=== PATIENT | male | born 1970 | race Two or more races ===

== ENCOUNTER 2021-01-17 13:00 | Outpatient (RCR) | payer OTHER, SELFPAY | END 2021-01-19 15:51 | disposition home or self-care (01) | LOC: HO.PT 13:00 | PROVIDERS: PCP Family Medicine; Visit Provider Family Medicine | DX: M54.13 Radiculopathy, cervicothoracic region (principal) | CPT/HCPCS: 97110; 97112; 97140; 97161 ==

== ENCOUNTER 2021-09-19 14:00 | Outpatient (RCR) | payer OTHER, SELFPAY | END 2021-09-19 17:50 | disposition home or self-care (01) | LOC: HO.PT 14:00 | PROVIDERS: PCP Family Medicine; Visit Provider Family Medicine | DX: M53.3 Sacrococcygeal disorders, not elsewhere classified (principal) | CPT/HCPCS: 97110; 97140; 97162 ==

== ENCOUNTER 2021-10-10 13:38 | Outpatient (REF) | payer OTHER, SELFPAY | END 2021-10-10 13:39 | disposition home or self-care (01) | LOC: HO.HMGCLDS 13:38 | PROVIDERS: Visit Provider Internal Medicine | DX: Z20.822 Contact with and (suspected) exposure to COVID-19 (principal) | CPT/HCPCS: C9803; U0003; U0005 ==

== ENCOUNTER → 2021-11-13 11:53 | Outpatient (BNVA) | payer OTHER, SELFPAY | PROVIDERS: PCP Family Medicine; Visit Provider Physician Assistant | DX: Z01.818 Encounter for other preprocedural examination (principal); Z87.19 Personal history of other diseases of the digestive system; Z80.0 Family history of malignant neoplasm of digestive organs | CPT/HCPCS: 99202 ==

== ENCOUNTER 2021-11-15 11:38 | Outpatient (REF) | payer OTHER, SELFPAY ==
--- NOTE | ~2021-11-15 | XR_ITS ---
EXAMINATION: XR SHOULDER, RIGHT CLINICAL INFORMATION: Right shoulder pain. COMPARISON: None TECHNIQUE: AP external rotation, Grashey, scapular Y, and axillary views of the right shoulder. FINDINGS: There is [id number] osteoarthritis in the right acromioclavicular joint. No fracture or malalignment. Glenohumeral joint space is well preserved. Bone mineralization is normal. Soft tissues are unremarkable. XR/XR shoulder RT min 2V IMPRESSION: Mild acromioclavicular osteoarthritis.
== END 2021-11-15 11:39 | disposition home or self-care (01) ==
LOC: HO.XRAY 11:38
PROVIDERS: PCP Family Medicine; Visit Provider Family Medicine
DX: M25.511 Pain in right shoulder (principal)
CPT/HCPCS: 73030

== ENCOUNTER → 2021-12-06 10:52 | Outpatient (BNVA) | payer OTHER, SELFPAY | PROVIDERS: PCP Family Medicine; Visit Provider Physician Assistant | DX: M77.8 Other enthesopathies, not elsewhere classified (principal) | CPT/HCPCS: 20610; 99202; J1040 ==

== ENCOUNTER → 2021-12-07 13:54 | Outpatient (BNVA) | payer OTHER, SELFPAY | PROVIDERS: PCP Family Medicine; Visit Provider Nurse Practitioner Family | DX: M47.27 Other spondylosis with radiculopathy, lumbosacral region (principal); M53.3 Sacrococcygeal disorders, not elsewhere classified; M47.22 Other spondylosis with radiculopathy, cervical region; M19.011 Primary osteoarthritis, right shoulder; F11.90 Opioid use, unspecified, uncomplicated; N52.9 Male erectile dysfunction, unspecified | CPT/HCPCS: 99202 ==

== ENCOUNTER 2021-12-12 09:42 | Day surgery (SDC) | payer OTHER, SELFPAY ==
--- NOTE | 2021-12-11 11:57 | P.CONAN_ITS ---
Documented by User: Hannah Washington NP 12/11/21 11:58 HPI - Anesthesia Eval Consult details Narrative: 51yo M for Colonoscopy Chronic opioids PMFSH Active Problems Active Problems: All Active Problems (Updated 12/07/21 @ 23:43 by VEDA Fabian) Osteoarthritis of right acromioclavicular joint (Acute) Cervical spondylosis with radiculopathy (Acute) Sacroiliac joint dysfunction of both sides (Acute) Lumbosacral spondylosis with radiculopathy (Acute) Chronic, continuous use of opioids (Acute) Erectile dysfunction (Acute) History of chronic constipation (Acute) Encounter for screening colonoscopy (Acute) Family History Family History Mother Diabetes Maternal Grandmother Diabetes Maternal Aunt Diabetes Cancer Maternal Aunt Diabetes Surgical History Surgical History Hx of appendectomy Hx of circumcision Social History Social History Household Members Other:: Alcohol intake: never Patient Tobacco Use Status: Former Tobacco user Use of substances other than those prescribed or required for medical reasons: No Advance Directives: No Advance Directives Information Provided: Yes Current occupational status: disabled Meds Allergies Allergy/AdvReac Type Severity Reaction Status Date / Time benzocaine Allergy Unknown UNKNOWN Verified 12/07/21 13:57 [From Chloraseptic] menthol [From Chloraseptic] Allergy Unknown UNKNOWN Verified 12/07/21 13:57 From Chloraseptic Allergy Unknown UNKNOWN Uncoded 12/06/21 11:10 Seafood Allergy Unknown ITCHY Uncoded 12/06/21 11:10 THROAT seafood Allergy Unknown Unknown Uncoded 12/06/21 11:10 Home Medications Medication Instructions Recorded Confirmed Last Taken Type aripiprazole 2 mg tablet (Abilify) 2 mg PO DAILY 11/13/21 11/13/21 Unknown History baclofen 20 mg tablet 20 mg PO BID 11/13/21 11/13/21 Unknown History oxycodone 7.5 mg tablet,oral ONLY 7.5 mg PO BID PRN 11/13/21 11/13/21 Unknown History (not for feeding tubes) Exam Exam Date and Time: December 11, 2021 1157 Assessment and Plan Assessment Anesthesia Assessment: Chart Reviewed Documented by User: Sindhu Knox MD 12/12/21 12:19 [facility] Past Medical History Functional capacity: independent ambulation Family History Family History Mother Diabetes Maternal Grandmother Diabetes Maternal Aunt Diabetes Cancer Maternal Aunt Diabetes Family history of problems with anesthesia: No Surgical History Surgical History Hx of appendectomy Hx of circumcision Social History Social History Household Members Other:: Alcohol intake: never Patient Tobacco Use Status: Former Tobacco user Use of substances other than those prescribed or required for medical reasons: No Advance Directives: No Advance Directives Information Provided: Yes Current occupational status: disabled Meds Allergies Allergy/AdvReac Type Severity Reaction Status Date / Time benzocaine Allergy Unknown UNKNOWN Verified 12/07/21 13:57 [From Chloraseptic] menthol [From Chloraseptic] Allergy Unknown UNKNOWN Verified 12/07/21 13:57 From Chloraseptic Allergy Unknown UNKNOWN Uncoded 12/06/21 11:10 Seafood Allergy Unknown ITCHY Uncoded 12/06/21 11:10 THROAT seafood Allergy Unknown Unknown Uncoded 12/06/21 11:10 Home Medications Medication Instructions Recorded Confirmed Last Taken Type aripiprazole 2 mg tablet (Abilify) 2 mg PO DAILY 11/13/21 11/13/21 Unknown History baclofen 20 mg tablet 20 mg PO BID 11/13/21 11/13/21 Unknown History oxycodone 7.5 mg tablet,oral ONLY 7.5 mg PO BID PRN 11/13/21 11/13/21 Unknown History (not for feeding tubes) Exam Airway Mallampati Class: II TM Dist: >3cm Neck ROM: Full Heart: RRR Lungs: CTA Assessment and Plan Final Anesthetic Review Family History of Problems with Anesthesia: No ASA Class: II Final Preanesthetic Review: No Changes in Pt Med Stat, Meds/Allgs Chart Reviewed, Consent Obtained/Reviewed and Anes Risks/Benef Reviewed Patient Risk: Low Procedure Risk: Low Anesthetic Plan Anesthetic Plan: MAC: Disposition: Standard PACU
[2021-12-12 10:34] VITALS: BP 117/80; PULSE 87; RESP 16; TEMP 36.5; O2SAT 96; BMI 27.3
[2021-12-12] MEDS: Lactated Ringers 1,000 ML 100 ML IVCONT (10:56)
--- NOTE | 2021-12-12 12:05 | MHC.SHP ---
Pre-Procedural Eval Section A Date of Service: 12/12/21 The patient is an INPATIENT: No Changes since office visit: Yes Patient answered all questions; No Cold of Flu in the past 2 weeks, No New Medical Problems and No Changes in Medication The History & Physical has been completed within 30 days and I have reviewed it.: Yes Section B Chief Complaint: screening,hx of digestive system Allergies: Allergies Allergy/AdvReac Type Severity Reaction Status Date / Time benzocaine Allergy Unknown UNKNOWN Verified 12/07/21 13:57 [From Chloraseptic] menthol [From Chloraseptic] Allergy Unknown UNKNOWN Verified 12/07/21 13:57 From Chloraseptic Allergy Unknown UNKNOWN Uncoded 12/06/21 11:10 Seafood Allergy Unknown ITCHY Uncoded 12/06/21 11:10 THROAT seafood Allergy Unknown Unknown Uncoded 12/06/21 11:10 Plan I have reviewed the history and physical and performed a pertinent physical examination on my patient. No changes have occurred unless specified.
--- NOTE | 2021-12-12 12:06 | W.PM.OPN ---
Operative Note Operative Note Date of Service: 12/12/21 Narrative: Pre-op diagnosis: Colon cancer screening Post-op diagnosis:?other (Colon polyps, diverticulosis, hemorrhoid) Procedure: COLONOSCOPY TILL CECUM WITH BIOPSIES Consent: Indications for the procedure and potential complications of bleeding, perforation, reaction to medications and missed diagnosis were discussed with the patient and informed consent was obtained. Instrument: Olympus PCF H 190 L variable stiffness pediatric colonoscope Monitoring: Vital signs and clinical assessment, intermittent blood pressure monitoring, continuous EKG monitoring, Pulse oximetry and Carbon Dioxide monitoring were done throughout the procedure. Colon withdrawl time was 24 minutes. Procedure: The patient was placed in the left lateral decubitis position and pre-procedure medications were administered. After a digital rectal examination of the ano-rectum, the video colonoscope was inserted into the rectum and advanced through the colon to the cecum. The colonoscope was slowly withdrawn in a retrograde panoramic fashion and the colon mucosa was carefully examined including a retroflexed view of the rectum. Findings and interventions are described below. Procedure Difficulty: Without difficulty Findings: Terminal Ileum: Not evaluated Cecum:? Normal Ascending Colon:? Normal Transverse Colon:? a 2-3 mm sessile polyp removed with the cold biopsy Descending Colon:? Normal Sigmoid Colon:? A 2-3 mm diminutive appearing polyp removed with the cold biopsy.? Moderate diverticulosis Rectum:? Normal Ano-rectum:? Moderate internal hemorrhoids Colon preparation:? Good? Impression and Post Procedure Diagnosis: Colonoscopy Findings: Two tiny polyps removed Moderate diverticulosis seen in the sigmoid colon Moderate hemorrhoids on retroflexed exam. Plan: Await pathology results Patient has an appointment on 01/11/22 in the GI Clinic with TONY Read. Repeat Colonoscopy interval based on path results - in 5 years if polyps are adenomatous and 10 years if polyps are hyperplastic. Above findings were reviewed with the patient and colon polyps and diverticulosis handouts were given in the discharge area Surgeon: Venecia Beckford MD Anesthesia:?MAC (Dr El) Was an Bacteriologist Fishery used for this Procedure?:?Yes Bacteriologist Fishery:?Leora Hurley Estimated blood loss (mL):?0 Pathology:?other ( A: transverse colon polyp? B: sigmoid polyp) Condition:?stable Disposition:?PACU
[2021-12-12 13:00] VITALS: BP 87/50; PULSE 79; RESP 16; TEMP 36.4; O2SAT 95
[2021-12-12 13:15] VITALS: BP 110/70; PULSE 71; RESP 16; TEMP 36.4; O2SAT 98
--- NOTE | 2021-12-12 13:15 | HO.POSTANES ---
Post Anesthesia Evaluation Post Anesthesia Evaluation Vital Signs: Vital Signs Temp Pulse Resp BP Pulse Ox 12/12/21 13:00 97.6 F 79 16 87/50 L 95 12/12/21 10:34 97.7 F 87 16 117/80 96 Anesthesia: Monitored Mental Status: Awake Pain Control: Satisfactory Nausea/Vomiting: None Hydration: Adequate Anesthesia-Related Issues: No Anes. Related Issues
== END 2021-12-12 14:14 | disposition home or self-care (01) ==
PROVIDERS: PCP Family Medicine; Visit Provider Internal Medicine Gastroenterology
PROC: 0DJD8ZZ Inspection of Lower Intestinal Tract, Via Natural or Artificial Opening Endoscopic (ICD-10-PCS; CPT 45378; principal; 2021-12-12 11:40)
DX: Z12.11 Encounter for screening for malignant neoplasm of colon (principal); K63.5 Polyp of colon; K57.30 Diverticulosis of large intestine without perforation or abscess without bleeding; K64.8 Other hemorrhoids; Z87.19 Personal history of other diseases of the digestive system; M54.30 Sciatica, unspecified side; K59.09 Other constipation; Z79.899 Other long term (current) drug therapy; Z88.8 Allergy status to other drugs, medicaments and biological substances; Z87.891 Personal history of nicotine dependence
CPT/HCPCS: 45380; 88305

== ENCOUNTER 2022-01-08 13:12 | Outpatient (REF) | payer OTHER, SELFPAY | END 2022-01-08 13:13 | disposition home or self-care (01) | LOC: HO.MRI 13:12 | PROVIDERS: Visit Provider Nurse Practitioner Family | DX: Z13.89 Encounter for screening for other disorder (principal) ==

== ENCOUNTER → 2022-01-11 12:28 | Outpatient (BNVA) | payer OTHER, SELFPAY | PROVIDERS: PCP Family Medicine; Referring Provider Family Medicine; Visit Provider Physician Assistant | DX: K57.90 Diverticulosis of intestine, part unspecified, without perforation or abscess without bleeding (principal); K63.5 Polyp of colon; K64.9 Unspecified hemorrhoids; Z87.19 Personal history of other diseases of the digestive system | CPT/HCPCS: 99212 ==

== ENCOUNTER 2022-01-26 15:50 | Outpatient (REF) | payer OTHER, SELFPAY ==
--- NOTE | ~2022-01-26 | MR_ITS ---
EXAMINATION: MR LUMBAR SPINE WITHOUT CONTRAST CLINICAL INFORMATION: 51-year-old with complaints of right-sided low back pain and right-sided lumbar radicular symptoms. COMPARISON: None TECHNIQUE: MRI of the lumbar spine was obtained using routine sequences without contrast. FINDINGS: Coronal Alignment: Normal. Sagittal Alignment: Normal. Lumbosacral Junction: Normal. 5 [id number] lumbar vertebra. There are some perineural/Tarlov cysts seen on both sides of the S2 sacral canal. Vertebral Bodies: Normal height. Disc Spaces and Endplates: The lumbar intervertebral disc space heights and signal are well-maintained throughout the lumbar spine. Endplates appear intact. No significant spondylosis. Spinal Canal: No abnormal developmental findings. Bone Marrow: No significant marrow-replacing process or bone marrow edema. Conus Medullaris: Terminates at T12-L1. Morphology and signal is normal. Intradural Nerve Roots: Within normal limits. The lumbar intervertebral discs demonstrate normal contours. No significant disc bulge or herniation seen. There are mild degrees of facet arthrosis noted bilaterally at the levels between L3-L4 and L5-S1 inclusive. No significant spinal canal or neuroforaminal stenosis and no evidence for neural impingement. Paraspinal/Retroperitoneal: The paravertebral soft tissues appear grossly unremarkable. There are bony productive changes along the anterior margins of both sacroiliac joints with foci of signal loss consistent with degenerative sclerosis consistent with osteoarthritic change, similar in appearance to a previous CT of the abdomen performed on 07/25/2014. MR/MR lumbar spine wo con IMPRESSION: 1. Normal spinal alignment. No significant disc degenerative change and no significant disc bulge or herniation. 2. Mild degrees of facet arthrosis bilaterally in the lower lumbar spine with no significant spinal canal or neuroforaminal stenosis. No evidence for neural impingement. 3. Osteoarthritic degenerative changes along the anterior margins of both SI joints.
== END 2022-01-26 15:51 | disposition home or self-care (01) ==
LOC: HO.MRI 15:50
PROVIDERS: Visit Provider Nurse Practitioner Family
DX: M47.27 Other spondylosis with radiculopathy, lumbosacral region (principal)
CPT/HCPCS: 72148

== ENCOUNTER 2023-06-21 10:05 | Outpatient (REF) | payer OTHER, SELFPAY ==
[2023-06-23 03:23] LABS: Follicle Stimulating Hormone 7.6 mIU/mL (1.6-8.0); Lutenizing Hormone 4.2 mIU/mL (1.5-9.3)
[2023-06-27 12:42] LABS: Testosterone, Free 86.5 pg/mL (35.0-155.0); Testosterone, Total 503 ng/dL (250-1100)
== END 2023-06-21 10:06 | disposition home or self-care (01) ==
LOC: HO.HHCL 10:05
PROVIDERS: Visit Provider Family Medicine
DX: E29.1 Testicular hypofunction (principal)
CPT/HCPCS: 36415; 83001; 83002; 84402; 84403

== ENCOUNTER 2023-06-28 10:11 | Outpatient (REF) | payer OTHER, SELFPAY ==
[2023-07-04 15:03] LABS: Testosterone, Free 75.1 pg/mL (35.0-155.0); Testosterone, Total 504 ng/dL (250-1100)
== END 2023-06-28 10:12 | disposition home or self-care (01) ==
LOC: HO.CHCLDS 10:11
PROVIDERS: Visit Provider Family Medicine
DX: E29.1 Testicular hypofunction (principal)
CPT/HCPCS: 36415; 84402; 84403

== ENCOUNTER 2023-10-11 15:59 | Outpatient (REF) | payer OTHER, SELFPAY ==
[2023-10-12 02:32] LABS: CT PCR NOT DETECTED (Not Detect.); NG PCR NOT DETECTED (Not Detect.)
== END 2023-10-11 16:00 | disposition home or self-care (01) ==
LOC: HO.CHCLNP 15:59
PROVIDERS: Visit Provider Family Medicine
DX: Z20.2 Contact with and (suspected) exposure to infections with a predominantly sexual mode of transmission (principal)
CPT/HCPCS: 0353U

== ENCOUNTER 2023-10-15 09:36 | Outpatient (REF) | payer OTHER, SELFPAY ==
[2023-10-15 14:56] LABS: MANUAL DIFF FLAG NO
[2023-10-15 15:03] LABS: Basophils Percent Auto 0.5 % (0-2); Eosinophils Absolute Auto 0.1 X10*3/uL (0.0-0.4); Eosinophils Percent Auto 2.2 % (0-4); Hematocrit 43.9 % (42.0-52.0); Imm Gran Abs Auto 0.02 X10*3/uL (0.00-0.03); Imm Gran Pct Auto 0.3 % (0.0-0.4); Lymphocytes Absolute Auto 1.5 X10*3/uL (1.2-4.9); Lymphocytes Percent Auto 23.2 % (20-40); Mean Corpuscular HGB Conc 34.2 g/dl (31.0-36.0); Mean Corpuscular Hemoglobin 31.2 pg (27.0-33.0); Mean Corpuscular Volume 91.3 fL (80.0-98.0); Monocytes Absolute Auto 0.6 X10*3/uL (0.1-1.2); Monocytes Percent Auto 9.6 % (2-11); Neutrophils Absolute Auto 4.1 x10*3/uL (2.0-8.3); Neutrophils Percent Auto 64.2 % (45-73); Platelet Count 260 X10*3/uL (160-400); Red Blood Count 4.81 X10*6/uL (4.60-5.80); Red Cell Distribution Width 12.7 % (11.0-16.0); White Blood Count 6.4 X10*3/uL (4.8-10.8)
[2023-10-15 15:29] LABS: Estimated Average Glucose 111 mg/dL; Hemoglobin A1c % 5.5 % (<6.0)
[2023-10-15 15:31] LABS: Alanine Aminotransferase 29 U/L (0-40); Albumin Level 4.1 g/dL (3.5-5.0); Alkaline Phosphatase 58 U/L (39-117); Anion Gap 14 (12-20); Aspartate Amino Transferase 15 U/L (5-37); Bilirubin Total 0.4 mg/dL (0.0-1.0); Blood Urea Nitrogen 18 mg/dL (9-16); Calcium 9.4 mg/dL (8.4-10.2); Carbon Dioxide 26 mmol/L (22-29); Chloride 106 mmol/L (96-108); Cholesterol 191 mg/dL (<200); Estimated Glomerular Filt Rate > 60; Glucose Random 95 mg/dL (60-115); HDL Cholesterol 59 mg/dL (>40); LDL Cholesterol Calculated 114 mg/dL (<100); Potassium 3.9 mmol/L (3.3-5.1); Sodium 142 mmol/L (135-145); Total Protein 6.8 g/dL (6.5-8.0); Triglycerides 90 mg/dL (<150)
[2023-10-15 15:45] LABS: TSH reflex Free T4 1.79 uIU/mL (0.32-4.0); TSH reflex Free T4 1.94 uIU/mL (0.32-4.0)
[2023-10-16 04:36] LABS: Syphilis Screen Nonreactive (Nonreactive)
[2023-10-16 04:57] LABS: HBsAGNum1 0.22 S/CO (0.00-0.99); HIV AB/AG Nonreactive (Nonreactive); HIV Num 1 0.07 S/CO (0.00-0.99); Hepatitis B Surface Antigen Negative (Negative); ~HepC Num1 0.12 S/CO (0.00-0.79); ~Hepatitis C Antibody Nonreactive (Nonreactive)
[2023-10-16 15:23] LABS: Herpes Simplex Type 2 IgG <0.90 index
[2023-10-19 05:18] LABS: Immunoglobulin M 38 mg/dL (50-300)
== END 2023-10-15 09:37 | disposition home or self-care (01) ==
LOC: HO.CHCLDS 09:36
PROVIDERS: Visit Provider Family Medicine
DX: R73.01 Impaired fasting glucose (principal); Z11.3 Encounter for screening for infections with a predominantly sexual mode of transmission; E66.09 Other obesity due to excess calories; Z68.31 Body mass index [BMI] 31.0-31.9, adult; Z20.2 Contact with and (suspected) exposure to infections with a predominantly sexual mode of transmission
CPT/HCPCS: 36415; 80053; 80061; 82784; 83036; 84443; 85025; 86695; 86696; 86780; 86803; 87340; 87389

== ENCOUNTER 2023-12-30 09:58 | Outpatient (AMB) | payer OTHER, SELFPAY ==
--- NOTE | 2023-12-30 10:00 | A.OFFVIS_ITS ---
Intake Intake Visit Reasons: hypogonadism in male Intake Note: NEW Patient presents today to established treatment for hypogonadism Meds- None Allergies to antibiotics: none Blood thinner: none Delivery Mgr Required: No Accompanied by: Self / Same As Patient Allergies benzocaine [From Chloraseptic] Allergy (Unknown, Verified 12/30/23 10:11) UNKNOWN menthol [From Chloraseptic] Allergy (Unknown, Verified 12/30/23 10:11) UNKNOWN From Chloraseptic Allergy (Unknown, Uncoded 12/30/23 10:11) UNKNOWN Seafood Allergy (Unknown, Uncoded 12/30/23 10:11) ITCHY THROAT seafood Allergy (Unknown, Uncoded 12/30/23 10:11) Unknown HPI HPI Comments History of Present Illness Details Kameron is a 53-year-old male who presents for new patient evaluation for hypogonadism. I have reviewed referral notes. The patient is on chronic opioid use for back pain. International index erectile function questionnaire completed score 17 - indicating mild ED. He had labs done in June 2023. 06/21/2023 FSH -7.6-(N), LH-4.2-(N), 06/28/2023-- total testosterone 504 WNL, free testosterone 75.1 WNL Plan I have discussed repeating lab work. PFS Medical History Back pain Hypogonadism in male Surgical History Hx of colonoscopy Hx of circumcision Hx of appendectomy Family History Mother Diabetes Maternal Grandmother Diabetes Maternal Aunt Diabetes Cancer Maternal Aunt Diabetes Social History Household Members Other:: Alcohol intake: never Patient Tobacco Use Status: Former Tobacco user Current occupational status: disabled Review of Systems Const All systems reviewed & are unremarkable except as noted in HPI and below Reports no additional complaints Eyes Reports no additional complaints ENT Reports no additional complaints Card Reports no additional complaints Resp Reports no additional complaints GI Reports no additional complaints Reports as per HPI Musc Reports no additional complaints Skin/Breast Reports system reviewed and no additional complaints, except as documented Neuro Reports no additional complaints Psych Reports no additional complaints Endo Reports no additional complaints Pj/Lymph Reports no additional complaints Aller/Immun Reports no additional complaints Physical Exam Const General: healthy appearing, no acute distress and well developed Orientation/consciousness: patient oriented x3 HEENT Head: Yes normocephalic and Yes atraumatic Eyes Conjunctivae: conjunctivae normal Neck Neck: Yes normal visual inspection Chest Chest palpation & inspection: normal inspection of the chest Resp Effort & Inspection: normal respiratory effort Cardio Rate: regular rate GI Inspection: Yes normal to inspection Skin General skin exam: no rashes or lesions noted Neuro General: patient oriented x3 Extrem General: No pedal edema Psych Appearance: grossly normal Affect: normal affect Results AMB Urinalysis, Automated UA Leukoctes 0 Lalitha/uL Last Edit by Amanda Enriquez [facility] on 12/30/23 10 :21 UA Nitrite Negative Last Edit by Amanda Enriquez [facility] on 12/30/23 10: 21 UA Urobilinogen 0.2 mg/dL Last Edit by Amanda Enriquez [facility] on 4 10:21 UA Protein 15 mg/dL Last Edit by Amanda Enriquez [facility] on 12/30/23 10:2 1 UA pH 6.0 Last Edit by Amanda Enriquez [facility] on 12/30/23 10:21 UA Blood 10 Gavin/uL Last Edit by Amanda Enriquez [facility] on 12/30/23 10:21 UA Specific [place] 1.025 Last Edit by Amanda Enriquez [facility] on 10:21 UA Ketone Negative Last Edit by Amanda Enriquez [facility] on 12/30/23 10:2 1 UA Bilirubin 0 mg/dL Last Edit by Amanda Enriquez [facility] on 12/30/23 10: 21 UA Glucose 0 mg/dL Last Edit by Amanda Enriquez [facility] on 12/30/23 10:21 Results Reviewed Results Reviewed: Laboratory Last Values Urine pH (Auto) 6.0 12/30/23 10:14 Specific [place] (Auto) 1.025 12/30/23 10:14 Urine Protein (Auto) 15 mg/dL 12/30/23 10:14 Glucose (UA)(Auto) 0 mg/dL 12/30/23 10:14 Urine Ketones (Auto) Negative 12/30/23 10:14 Urine Blood (Auto) 10 Gavin/uL 12/30/23 10:14 Urine Nitrite (Auto) Negative 12/30/23 10:14 Urine Bilirubin (Auto) 0 mg/dL 12/30/23 10:14 Urine Urobilinogen (Auto) 0.2 mg/dL 12/30/23 10:14 Leukocyte Esterase (Auto) 0 Lalitha/uL 12/30/23 10:14 Assessment & Plan Assessment & Plan (1) Erectile dysfunction: Code(s): N52.9 - Male erectile dysfunction, unspecified (2) Chronic, continuous use of opioids: Code(s): F11.90 - Opioid use, unspecified, uncomplicated (3) Screening PSA (prostate specific antigen): Code(s): Z12.5 - Encounter for screening for malignant neoplasm of prostate Plan Testosterone, PSA Orders: Orders AMB Urinalysis Automated 12/30/23 R33.9 - Retention of urine, unspecified Patient Instructions: The patient had an opportunity to ask questions regarding treatment plan. All questions were answered. Laboratory studies were discussed and reviewed in detail. No major barriers to understanding were identified. The patient expressed understanding and agreement with the above treatment plan. The patient is aware they should contact our office by phone for worsening of their current condition or the appearance of new symptoms. Compliance is encouraged with any medications and followup testing that is ordered. It is a privilege to be allowed the opportunity to participate in the urologic care of your patient. If you have any questions or concerns regarding treatment for the above conditions please do not hesitate to contact me. The office telephone contact is [phone]. This note is constructed in part using voice recognition software. While every effort has been made to ensure accuracy swahili teacher errors may have been included. Yours sincerely, Kim Jacobo MD Coding Level of Care Code New Pt Level 3 (85963) Diagnoses Erectile dysfunction N52.9 Chronic, continuous use of opioids F11.90 Screening PSA (prostate specific antigen) Z12.5
== END 2023-12-30 11:20 | disposition home or self-care (01) ==
PROVIDERS: PCP Family Medicine; Visit Provider Urology
DX: N52.9 Male erectile dysfunction, unspecified (principal); F11.90 Opioid use, unspecified, uncomplicated; Z12.5 Encounter for screening for malignant neoplasm of prostate
CPT/HCPCS: 99203

== ENCOUNTER → 2023-12-30 09:58 | Outpatient (BNVA) | payer OTHER, SELFPAY | PROVIDERS: PCP Family Medicine; Visit Provider Urology | DX: R33.9 Retention of urine, unspecified (principal) | CPT/HCPCS: 81003; 99202 ==

== ENCOUNTER 2024-02-24 10:40 | Outpatient (REF) | payer OTHER, SELFPAY ==
[2024-02-24 11:31] LABS: Glucose Fasting 101 mg/dL (60-99)
[2024-02-25 12:34] LABS: Free Prostate Spec Ag 0.7 ng/mL; Percent Free Prostate Spec Ag 13 % (calc) (>25); Prostate Specific Ag Total 5.2 ng/mL (< OR = 4.0)
[2024-02-28 21:53] LABS: Testosterone, Free 44.5 pg/mL (35.0-155.0); Testosterone, Total 309 ng/dL (250-1100)
== END 2024-02-24 10:41 | disposition home or self-care (01) ==
LOC: HO.LAB 10:40
PROVIDERS: Visit Provider Urology
DX: N52.9 Male erectile dysfunction, unspecified (principal); Z12.5 Encounter for screening for malignant neoplasm of prostate
CPT/HCPCS: 36415; 82947; 84153; 84154; 84402; 84403

== ENCOUNTER → 2024-03-04 13:03 | Outpatient (BNVA) | payer OTHER, SELFPAY | PROVIDERS: PCP Family Medicine; Visit Provider Urology ==

== ENCOUNTER 2024-03-05 14:31 | Outpatient (AMB) | payer OTHER, SELFPAY ==
--- NOTE | 2024-03-04 13:04 | A.OFFVIS_ITS ---
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: Yes Allergies benzocaine [From Chloraseptic] Allergy (Unknown, Verified 03/04/24 13:04) UNKNOWN menthol [From Chloraseptic] Allergy (Unknown, Verified 03/04/24 13:04) UNKNOWN From Chloraseptic Allergy (Unknown, Uncoded 12/30/23 10:11) UNKNOWN Seafood Allergy (Unknown, Uncoded 12/30/23 10:11) ITCHY THROAT seafood Allergy (Unknown, Uncoded 12/30/23 10:11) Unknown PFSH Medical History Back pain Hypogonadism in male Surgical History Hx of colonoscopy Hx of circumcision Hx of appendectomy Family History Mother Diabetes Maternal Grandmother Diabetes Maternal Aunt Diabetes Cancer Maternal Aunt Diabetes Social History Household Members Other:: Alcohol intake: never Patient Tobacco Use Status: Former Tobacco user Current occupational status: disabled Telehealth Telehealth Telehealth Platform: Telephone Location of provider rendering services: practice address Location of patient: address on file Patient Identification confirmed using: Name, : Yes Telehealth method: voice only Patient verbally consented to treatment: Yes Patient verbally consented to billing insurance company: Yes Patient informed of any privacy concerns related to visit: Yes Coding
--- NOTE | 2024-03-05 14:36 | MHC.OFFVIS ---
Intake Visit Reasons: 1m/labs Intake Note: Patient presents today via phone for a follow-up on Hypogonadism/Labs Results: Meds- None Allergies to antibiotics: none Blood thinner: none Senior Production Supervisor Required: Yes Senior Production Supervisor Language: Software Engineering Project Manager Name: Nayan GainesCADE/MIRANDA GAGE Information Interpreted: non-clinical & clinical Accompanied by: Self / Same As Patient Allergies benzocaine [From Chloraseptic] Allergy (Unknown, Verified 03/04/24 13:04) UNKNOWN menthol [From Chloraseptic] Allergy (Unknown, Verified 03/04/24 13:04) UNKNOWN From Chloraseptic Allergy (Unknown, Uncoded 12/30/23 10:11) UNKNOWN Seafood Allergy (Unknown, Uncoded 12/30/23 10:11) ITCHY THROAT seafood Allergy (Unknown, Uncoded 12/30/23 10:11) Unknown Medication List - Last Reconciled 03/05/24 by Kim Jacobo MD aripiprazole (Abilify) 2 mg PO DAILY baclofen 10 mg PO BID oxycodone-acetaminophen 7.5-325 mg 1 tab PO Q8H PRN tadalafil (Cialis) 5 mg PO DAILY HPI Comments Details: 03/05/2024-Kameron is a 53-year-old male, Bolivian-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 Presents for [facility] follow-up to review labs. The patient was initially evaluated 12/30/2023 with complaints of ED. labs were ordered testosterone and PSA. Testosterone level is low normal PSA is elevated. I have discussed repeating the PSA and at this time do not want to place on testosterone replacement due to elevated PSA. Denies family history prostate cancer. He is on oxycodone for sciatica back pain. I have discussed PSA is a blood test, prostate specific antigen and is an enzyme secreted by the prostate gland. Elevated PSA may be due to multiple conditions including prostate inflammatory condition, enlarged prostate or prostate cancer. Discussed consideration for prostate biopsy if repeat PSA remains elevated. I will start on Cialis 5 mg daily. Repeat PSA in 3 months. 02/24/2024---PSA----5.2 ng/mL 02/24/2024---Total and free Testosterone levels -309/44.5 Review of chart: 12/30/2023-Kameron is a 53-year-old male who presents for new patient evaluation for hypogonadism. I have reviewed referral notes. The patient is on chronic opioid use for back pain. International index erectile function questionnaire completed score 17 - indicating mild ED. He had labs done in June 2023. 06/21/2023 FSH -7.6-(N), LH-4.2-(N), 06/28/2023-- total testosterone 504 WNL, free testosterone 75.1 WNL. Plan I have discussed repeating lab work. [facility] Medical History Back pain Hypogonadism in male Surgical History Hx of colonoscopy Hx of circumcision Hx of appendectomy Family History Mother Diabetes Maternal Grandmother Diabetes Maternal Aunt Diabetes Cancer Maternal Aunt Diabetes Social History Household Members Other:: Alcohol intake: never Patient Tobacco Use Status: Former Tobacco user Current occupational status: disabled Review of Systems Const All systems reviewed & are unremarkable except as noted in HPI and below Reports no additional complaints Eyes Reports no additional complaints ENT Reports no additional complaints Card Reports no additional complaints Resp Reports no additional complaints GI Reports no additional complaints Reports as per HPI Musc Reports no additional complaints Skin/Breast Reports system reviewed and no additional complaints, except as documented Neuro Reports no additional complaints Psych Reports no additional complaints Endo Reports no additional complaints Pj/Lymph Reports no additional complaints Aller/Immun Reports no additional complaints Telehealth Telehealth Telehealth Platform: [facility] Location of provider rendering services: practice address Location of patient: address on file Patient Identification confirmed using: Name, : Yes Telehealth method: voice only Patient verbally consented to treatment: Yes Patient verbally consented to billing insurance company: Yes Patient informed of any privacy concerns related to visit: Yes Minutes spent on Phone/Video with Pt.: 18 Assessment & Plan Assessment & Plan (1) Erectile dysfunction: Code(s): N52.9 - Male erectile dysfunction, unspecified Category: Medical (2) Chronic, continuous use of opioids: Code(s): F11.90 - Opioid use, unspecified, uncomplicated Category: Medical (3) Elevated PSA: Code(s): R97.20 - Elevated prostate specific antigen [PSA] Category: Medical Plan Cialis 5 mg daily. Repeat PSA in 3 months. Follow-up post. Orders: Orders PSA,Total (Free>4and<10) 3 Months R97.20 - Elevated prostate specific antigen [PSA] Medications: New tadalafil (Cialis) [id number] [facility] [id number] Member [id number] 5 mg PO DAILY 30 tabs 3RF Patient Instructions: The patient had an opportunity to ask questions regarding treatment plan. The patient expressed understanding and agreement with the above treatment plan. The patient is aware they should contact our office by phone for worsening of their current condition or the appearance of new symptoms. Compliance is encouraged with any medications and followup testing that is ordered. It is a privilege to be allowed the opportunity to participate in the urologic care of your patient. If you have any questions or concerns regarding treatment for the above conditions please do not hesitate to contact me. The office telephone contact is [phone]. This note is constructed in part using voice recognition software. While every effort has been made to ensure accuracy surgical appliance fitter errors may have been included. Yours sincerely, Kim Jacobo MD Coding Level of Care Code Tele Est Pt Level 4 (47691) Diagnoses Erectile dysfunction N52.9 Chronic, continuous use of opioids F11.90 Elevated PSA R97.20
== END 2024-03-05 15:49 | disposition home or self-care (01) ==
PROVIDERS: PCP Family Medicine; Visit Provider Urology
DX: N52.9 Male erectile dysfunction, unspecified (principal); F11.90 Opioid use, unspecified, uncomplicated; R97.20 Elevated prostate specific antigen [PSA]
CPT/HCPCS: 99442

== ENCOUNTER → 2024-03-05 14:31 | Outpatient (BNVA) | payer OTHER, SELFPAY | PROVIDERS: PCP Family Medicine; Visit Provider Urology ==

== ENCOUNTER 2024-06-18 13:12 | Outpatient (REF) | payer OTHER, SELFPAY ==
[2024-06-18 16:49] LABS: PSA,Total (Free>4and<10) 4.36 ng/mL (0.00-4.00)
[2024-06-22 11:28] LABS: Free Prostate Spec Ag 0.7 ng/mL; Percent Free Prostate Spec Ag 17 % (calc) (>25); Prostate Specific Ag Total 4.2 ng/mL (< OR = 4.0)
== END 2024-06-18 13:13 | disposition home or self-care (01) ==
LOC: HO.LAB 13:12
PROVIDERS: PCP Family Medicine; Visit Provider Urology
DX: R97.20 Elevated prostate specific antigen [PSA] (principal); Z12.5 Encounter for screening for malignant neoplasm of prostate; N52.9 Male erectile dysfunction, unspecified; F11.90 Opioid use, unspecified, uncomplicated
CPT/HCPCS: 36415; 81003; 84153; 84154; 99212

== ENCOUNTER 2024-06-18 13:12 | Outpatient (AMB) | payer OTHER, SELFPAY ==
--- NOTE | 2024-06-18 13:15 | A.OFFVIS_ITS ---
Intake Visit Reasons: 4m/Labs(labs 03/02) Intake Note: Patient presents today 4M follow-up Labs Meds- Ciatamras, not using Allergies to antibiotics: none Blood thinner: none Stage Hand Required: Yes Stage Hand Language: Guide Rail Cleaner Name: Felipe [id number] Information Interpreted: non-clinical & clinical Accompanied by: Self / Same As Patient Allergies benzocaine [From Chloraseptic] Allergy (Unknown, Verified 06/18/24 13:16) UNKNOWN menthol [From Chloraseptic] Allergy (Unknown, Verified 06/18/24 13:16) UNKNOWN From Chloraseptic Allergy (Unknown, Uncoded 06/18/24 13:16) UNKNOWN Seafood Allergy (Unknown, Uncoded 06/18/24 13:16) ITCHY THROAT seafood Allergy (Unknown, Uncoded 06/18/24 13:16) Unknown HPI Comments Details: 06/18/23-- here for FU for elevated PSA and ED. Pt states he did not get the Cialis because he had problems getting it from the pharm. He did not have psa repeated. Cialis resent to pharm with good Rx coupon. PSA today. Will call with results. I have discussed that elevated PSA may indicate changes in the prostate including benign enlargement, cancer and an inflammatory condition. I have discussed doing a biopsy has risks and that management in early detection of prostate cancer may include active surveillance. 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 Presents for tele health follow-up to review labs. The patient was initially evaluated 12/30/2023 with complaints of ED. labs were ordered testosterone and PSA. Testosterone level is low normal PSA is elevated. I have discussed repeating the PSA and at this time do not want to place on testosterone replacement due to elevated PSA. Denies family history prostate cancer. He is on oxycodone for sciatica back pain. I have discussed PSA is a blood test, prostate specific antigen and is an enzyme secreted by the prostate gland. Elevated PSA may be due to multiple conditions including prostate inflammatory condition, enlarged prostate or prostate cancer. Discussed consideration for prostate biopsy if repeat PSA remains elevated. I will start on Cialis 5 mg daily. Repeat PSA in 3 months. 02/24/2024---PSA----5.2 ng/mL 02/24/2024---Total and free Testosterone levels -309/44.5 12/30/2023-Kameron is a 53-year-old male who presents for new patient evaluation for hypogonadism. I have reviewed referral notes. The patient is on chronic opioid use for back pain. International index erectile function questionnaire completed score 17 - indicating mild ED. He had labs done in June 2023. 06/21/2023 FSH -7.6-(N), LH-4.2-(N), 06/28/2023-- total testosterone 504 WNL, free testosterone 75.1 WNL. Plan I have discussed repeating lab work. [facility] Medical History Back pain Hypogonadism in male Surgical History Hx of colonoscopy Hx of circumcision Hx of appendectomy Family History Mother Diabetes Maternal Grandmother Diabetes Maternal Aunt Diabetes Cancer Maternal Aunt Diabetes Social History Household Members Other:: Alcohol intake: never Patient Tobacco Use Status: Former Tobacco user Current occupational status: disabled Review of Systems Const All systems reviewed & are unremarkable except as noted in HPI and below Reports no additional complaints Eyes Reports no additional complaints ENT Reports no additional complaints Card Reports no additional complaints Resp Reports no additional complaints GI Reports no additional complaints Reports as per HPI Musc Reports no additional complaints Skin/Breast Reports system reviewed and no additional complaints, except as documented Neuro Reports no additional complaints Psych Reports no additional complaints Endo Reports no additional complaints Pj/Lymph Reports no additional complaints Aller/Immun Reports no additional complaints Results AMB Urinalysis, Automated UA Leukoctes 0 Lalitha/uL Last Edit by Katie Galicia [facility] on 06/18/24 14:10 UA Nitrite Negative Last Edit by Katie Galicia [facility] on 06/18/24 14:10 UA Urobilinogen 0.2 mg/dL Last Edit by Katie Galicia [facility] on 06/18/24 14:1 0 UA Protein 15 mg/dL Last Edit by Katie Galicia [facility] on 06/18/24 14:10 UA pH 6.0 Last Edit by Katie Galicia, [facility] on 06/18/24 14:10 UA Blood 10 Gavin/uL Last Edit by Katie Galicia [facility] on 06/18/24 14:10 UA Specific [place] 1.030 Last Edit by Katie Galicia [facility] on 06/18/24 14: 10 UA Ketone Positive Last Edit by Katie Galicia [facility] on 06/18/24 14:10 UA Bilirubin 0 mg/dL Last Edit by Katie Galicia [facility] on 06/18/24 14:10 UA Glucose 0 mg/dL Last Edit by Katie Galicia [facility] on 06/18/24 14:10 Results Reviewed Results Reviewed: Laboratory Last Values Urine pH (Auto) 6.0 06/18/24 14:09 Specific [place] (Auto) 1.030 06/18/24 14:09 Urine Protein (Auto) 15 mg/dL 06/18/24 14:09 Glucose (UA)(Auto) 0 mg/dL 06/18/24 14:09 Urine Ketones (Auto) Positive 06/18/24 14:09 Urine Blood (Auto) 10 Gavin/uL 06/18/24 14:09 Urine Nitrite (Auto) Negative 06/18/24 14:09 Urine Bilirubin (Auto) 0 mg/dL 06/18/24 14:09 Urine Urobilinogen (Auto) 0.2 mg/dL 06/18/24 14:09 Leukocyte Esterase (Auto) 0 Lalitha/uL 06/18/24 14:09 Assessment & Plan Assessment & Plan (1) Erectile dysfunction: Code(s): N52.9 - Male erectile dysfunction, unspecified Category: Medical (2) Chronic, continuous use of opioids: Code(s): F11.90 - Opioid use, unspecified, uncomplicated Category: Medical (3) Elevated PSA: Code(s): R97.20 - Elevated prostate specific antigen [PSA] Category: Medical Plan Cialis 5 mg daily. Repeat PSA in 3 months. Follow-up post. Orders: Orders AMB Urinalysis Automated Today Z13.9 - Encounter for screening, unspecified Medications: Refilled tadalafil (Cialis) [id number] [facility] [id number] Member [id number] 5 mg PO DAILY 30 tabs 3RF Patient Instructions: The patient had an opportunity to ask questions regarding treatment plan. The patient expressed understanding and agreement with the above treatment plan. The patient is aware they should contact our office by phone for worsening of their current condition or the appearance of new symptoms. Compliance is encouraged with any medications and followup testing that is ordered. It is a privilege to be allowed the opportunity to participate in the urologic care of your patient. If you have any questions or concerns regarding treatment for the above conditions please do not hesitate to contact me. The office telephone contact is [phone]. This note is constructed in part using voice recognition software. While every effort has been made to ensure accuracy tire mechanic errors may have been included. Yours sincerely, Kim Jacobo MD Coding Level of Care Code Est Pt Level 4 (56120) Diagnoses Erectile dysfunction N52.9 Chronic, continuous use of opioids F11.90 Elevated PSA R97.20
== END 2024-06-18 14:24 | disposition home or self-care (01) ==
PROVIDERS: PCP Family Medicine; Visit Provider Urology
DX: N52.9 Male erectile dysfunction, unspecified (principal); F11.90 Opioid use, unspecified, uncomplicated; R97.20 Elevated prostate specific antigen [PSA]; Z13.9 Encounter for screening, unspecified
CPT/HCPCS: 99214

== ENCOUNTER 2024-08-29 15:45 | Emergency (ER) | payer OTHER, SELFPAY ==
--- NOTE | ~2024-08-29 | CT_ITS ---
EXAMINATION: CT ABDOMEN AND PELVIS WITH CONTRAST CLINICAL INFORMATION: Abdominal pain lower GI bleed COMPARISON: CT abdomen and pelvis 07/25/2014 and 10/29/2017, MR lumbar spine 01/26/2022 TECHNIQUE: Multidetector volumetric imaging was performed from the superior aspect of the liver through the pubic symphysis with intravenous contrast. A total of 85 mL of Omnipaque 350 was utilized for the study. Sagittal and coronal reformatted images were obtained on the technologist's workstation. This CT examination was performed using dose optimization techniques as appropriate, variously including the following: *Automated exposure control *Adjustment of mA and/or kV according to patient size (this includes techniques or standardized protocols for targeted exams where dose is matched to indication/reason for exam; i.e. extremities or head) *Use of iterative reconstruction technique DLP: 706 mGy-cm FINDINGS: LUNG BASES: The visualized lung bases are unremarkable. LIVER, GALLBLADDER, AND BILIARY TREE: The liver is normal in size, shape, and attenuation. No focal hepatic lesion or biliary ductal dilatation is present. The gallbladder is contracted but otherwise unremarkable with no evidence of radiopaque gallstones, gallbladder wall thickening, or obvious pericholecystic inflammatory changes. PANCREAS: Unremarkable. SPLEEN: Unremarkable. ADRENAL GLANDS: Unremarkable. KIDNEYS AND URETERS: The kidneys are normal in size, shape, and attenuation. No hydronephrosis, hydroureter, or calculi seen. No perinephric stranding. A benign subcentimeter left upper pole Bosniak class I renal cyst is noted along with some left-sided parapelvic cysts which requires no additional imaging or follow up. No solid renal masses are seen. BLADDER: Unremarkable. GASTROINTESTINAL TRACT: There is colonic diverticulosis most prominent in the sigmoid without evidence of diverticulitis. There is high density seen in multiple sigmoid diverticula and GI bleeding cannot be assessed as no precontrast imaging was obtained. The small and large bowel are otherwise unremarkable. The appendix is not seen but there is no evidence of appendicitis. ABDOMINAL WALL: No significant hernia is appreciated. Tiny periumbilical hernia seen containing only fat. LYMPH NODES: No retroperitoneal lymphadenopathy. VASCULAR: Unremarkable. PELVIC VISCERA: Mild BPH. Seminal vesicles appear normal OSSEOUS STRUCTURES: Unremarkable. CT/CT abdomen pelvis w IV con IMPRESSION: No acute abnormalities are seen. Incidental note made of colonic diverticulosis without diverticulitis, mild BPH and other findings described above. Fleischner guidelines were followed. Electronically signed by: José Clark MD 08/29/2024 10:18 PM [facility]
[2024-08-29 16:00] VITALS: BP 103/69; PULSE 89; RESP 16; TEMP 36.8; O2SAT 96; BMI 32.5
--- NOTE | 2024-08-29 16:00 | ED.GIBLEED ---
HPI - GI Bleed General Chief complaint: GI Bleed Stated complaint: bloody in the stool and in the toilet Time Seen by Provider: 08/29/24 19:19 Source: patient Limitations: no limitations History of Present Illness ED Provider: Deborah Jaime PA-C HPI Narrative: 54-year-old male with a history of colonic polyps, diverticular disease, hemorrhoids, chronic constipation presents with rectal bleeding since earlier today. Patient states he has had 5 large volume bloody bowel movements today. Associated abdominal cramping. Denies rectal pain or purulent drainage per rectum. Denies nausea vomiting or fever. Related Data Home Medications ?Medication ?Instructions ?Recorded ?Confirmed aripiprazole 2 mg tablet (Abilify) 2 mg PO DAILY 11/13/21 03/05/24 oxycodone-acetaminophen 7.5 mg-325 1 tab PO Q8H PRN 01/11/22 03/05/24 mg tablet baclofen 10 mg tablet 10 mg PO BID 12/30/23 03/05/24 Previous Rx's ?Medication ?Instructions ?Recorded tadalafil 5 mg tablet (Cialis) 5 mg PO DAILY #30 tabs 06/18/24 Allergies Allergy/AdvReac Type Severity Reaction Status Date / Time benzocaine Allergy Unknown UNKNOWN Verified 08/29/24 16:01 [From Chloraseptic] menthol [From Chloraseptic] Allergy Unknown UNKNOWN Verified 08/29/24 16:01 From Chloraseptic Allergy Unknown UNKNOWN Uncoded 06/18/24 13:16 Seafood Allergy Unknown ITCHY Uncoded 06/18/24 13:16 THROAT seafood Allergy Unknown Unknown Uncoded 06/18/24 13:16 Review of Systems Review of Systems: Yes all other systems are reviewed and are negative Constitutional: Constitutional: Denies fatigue and Denies fever(s) Cardiovascular: Cardiovascular: Denies chest pain and Denies dyspnea Respiratory: Respiratory: Denies dyspnea Gastrointestinal: Gastrointestinal: Reports abdominal pain, Denies bloating, Reports hematochezia, Denies nausea and Denies vomiting Endocrine: Endocrine: Denies fatigue PMFSH Past Medical History Attestation statement: The following information was validated with the patient. Medical History Back pain Hypogonadism in male Surgical History Hx of colonoscopy Hx of circumcision Hx of appendectomy Family History Family History Mother Diabetes Maternal Grandmother Diabetes Maternal Aunt Diabetes Cancer Maternal Aunt Diabetes Social History Social History Household Members Other:: Alcohol intake: never Patient Tobacco Use Status: Former Tobacco user Advance Directives: No Advance Directives Information Provided: No Current occupational status: disabled Physical Exam Vital Signs: Vital Signs: Last Vital Signs Temp 98.2 F 08/29/24 21:45 Pulse 70 08/29/24 21:45 Resp 16 08/29/24 21:45 BP 121/84 08/29/24 21:45 Pulse Ox 95 08/29/24 21:45 O2 Del Method Room Air 08/29/24 21:45 BMI result Body Mass Index 32.5 Const: Other: Alert, well-appearing Orientation/consciousness: patient oriented x3 Resp: Other: Nonlabored respirations Cardio: Other: Normal peripheral perfusion GI: Other: Abdomen is soft, nondistended nontender no guarding Skin: Other: Warm dry no rash Neuro: General: patient oriented x3, no focal motor deficits and CN's II-XI intact bilaterally Psych: Other: Calm cooperative Course Course Course Narrative: This is an RME: Additional HPI, ROS, PE not included below will be deferred to primary provider. RME assessment and note performed by: Elida Holland PA-C This is a [id number]-male who presents to the ER with complaints of 4 episodes of BRBPR starting today. Reports several days ago he had an episode of abdominal pain. NO hx of similar symptoms. He is not on AC. Plan: Labs, further ER eval needed. Medications Administered Discontinued Medications Generic Name Dose Route Start Last Admin Trade Name Freq PRN Reason Stop Dose Admin Iohexol 85 ml 08/29/24 21:07 08/29/24 21:08 Iohexol 350 Mg/Ml 100 Ml Infus..Btl IV 08/29/24 21:08 85 ml ONCE ONE Administration Medical Decision Making Medical Decision Making [facility] Narrative: 54-year-old male with a history of colonic polyps, diverticular disease, hemorrhoids, chronic constipation presents with rectal bleeding since earlier today. Patient states he has had 5 large volume bloody bowel movements today. Associated abdominal cramping. Denies rectal pain or purulent drainage per rectum. Denies nausea vomiting or fever. Problem: Diverticular disease, colonic polyps, hemorrhoids History: Per patient I have considered the following differential diagnoses: Bleeding hemorrhoids, thrombosed hemorrhoid, perirectal abscess, diverticulitis, diverticulosis Plan: Patient has multiple known sources for potential bleeding, given the volume per his report, it is likely from his diverticulosis. He does have some degree discomfort, we will obtain a CT scan. Screening labs that were obtained are stable, he has not had additional episodes since arrival, we will repeat his CBC. I have independently reviewed the following tests: Labs: No leukocytosis, not anemic, repeat CBC is essentially the same, no electrolyte abnormality CT abdomen and pelvis: CT/CT abdomen pelvis w IV con IMPRESSION: No acute abnormalities are seen. Incidental note made of colonic diverticulosis without diverticulitis, mild BPH and other findings described above. Fleischner guidelines were followed. Electronically signed by: José Clark MD 08/29/2024 10:18 PM [facility] [place] 08/29/24 20:51 08/29/24 16:49 Labs: Lab Results 08/29/24 08/29/24 Range/Units 16:49 20:51 WBC 7.2 7.0 (4.8-10.8) X10*3/uL RBC 4.63 4.53 L (4.60-5.80) X10*6/uL Hgb 14.4 14.1 (14.0-18.0) g/dl Hct 41.2 L 40.5 L (42.0-52.0) % MCV 89.0 89.4 (80.0-98.0) fL MCH 31.1 31.1 (27.0-33.0) pg MCHC 35.0 34.8 (31.0-36.0) g/dl RDW 12.8 12.9 (11.0-16.0) % Plt Count 236 241 (160-400) X10*3/uL MPV 9.4 9.6 (9.4-12.4) fL Immature Gran % (Auto) 0.4 0.1 (0.0-0.4) % Neut % (Auto) 64.2 61.1 (45-73) % Lymph % (Auto) 24.9 27.9 (20-40) % [place] % (Auto) 6.5 6.9 (2-11) % Eos % (Auto) 3.7 3.6 (0-4) % Baso % (Auto) 0.3 0.4 (0-2) % Lymph # (Auto) 1.8 1.9 (1.2-4.9) X10*3/uL [place] # (Auto) 0.5 0.5 (0.1-1.2) X10*3/uL Eos # (Auto) 0.3 0.3 (0.0-0.4) X10*3/uL Baso # (Auto) 0.0 0.0 (0.0-0.2) X10*3/uL Abs Immat Gran (auto) 0.03 0.01 (0.00-0.03) X10*3/uL Absolute Neuts (auto) 4.6 4.3 (2.0-8.3) x10*3/uL Absolute Nucleated RBC 0.000 0.000 (0.0-0.012) X10*3/uL Nucleated RBC % (auto) 0.0 0.0 (0.0-0.2) /100WBC PT 11.6 (10.9-12.4) SEC INR 1.0 (0.9-1.1) APTT 32.5 (26.0-36.8) SEC Sodium 141 (135-145) mmol/L Potassium 4.2 (3.3-5.1) mmol/L Chloride 109 H (96-108) mmol/L Carbon Dioxide 22 (22-29) mmol/L Anion Gap 14 (12-20) BUN 15 (9-16) mg/dL Creatinine 1.11 (0.5-1.4) mg/dL Estim Creat Clear Calc 88.6 Estimated GFR > 60 Random Glucose 113 (60-115) mg/dL Calcium 9.4 (8.4-10.2) mg/dL Magnesium 2.0 (1.6-2.6) mg/dL Total Bilirubin 0.3 (0.0-1.0) mg/dL Direct Bilirubin 0.1 (0.0-0.5) mg/dL AST 24 (5-37) U/L ALT 39 (0-40) U/L Alkaline Phosphatase 57 (39-117) U/L Total Protein 6.7 (6.5-8.0) g/dL Albumin 4.1 (3.5-5.0) g/dL Lipase 20 (8-78) U/L Discharge Plan Discharge Clinical Impression: Diverticulosis Patient Disposition: Home, Self-Care Additional Instructions: All of your labs were normal, we repeated your cell blood count, it did not drop. There was no acute infection within the abdomen, on the CT scan. As you already are aware, you have what is called diverticulosis. These pockets in your large intestine can bleed at times, they were found on your prior colonoscopy. You need another colonoscopy. Call your primary care provider tomorrow so they can schedule an outpatient colonoscopy. Prescriptions: No Action aripiprazole [Abilify] 2 mg tablet 2 mg PO DAILY oxycodone-acetaminophen 7.5-325 mg tablet 1 tab PO Q8H PRN baclofen 10 mg tablet 10 mg PO BID tadalafil [Cialis] 5 mg tablet 5 mg PO DAILY Qty: 30 3RF Rx Instructions: [id number] NGAL [id number] Member [id number] Print Language: Indonesian
[2024-08-29 16:55] LABS: MANUAL DIFF FLAG NO
[2024-08-29 16:56] LABS: Basophils Percent Auto 0.3 % (0-2); Eosinophils Absolute Auto 0.3 X10*3/uL (0.0-0.4); Eosinophils Percent Auto 3.7 % (0-4); Hematocrit 41.2 % (42.0-52.0); Hemoglobin 14.4 g/dl (14.0-18.0); Imm Gran Abs Auto 0.03 X10*3/uL (0.00-0.03); Imm Gran Pct Auto 0.4 % (0.0-0.4); Lymphocytes Absolute Auto 1.8 X10*3/uL (1.2-4.9); Lymphocytes Percent Auto 24.9 % (20-40); Mean Corpuscular Hemoglobin 31.1 pg (27.0-33.0); Mean Platelet Volume 9.4 fL (9.4-12.4); Monocytes Absolute Auto 0.5 X10*3/uL (0.1-1.2); Monocytes Percent Auto 6.5 % (2-11); Neutrophils Absolute Auto 4.6 x10*3/uL (2.0-8.3); Neutrophils Percent Auto 64.2 % (45-73); Platelet Count 236 X10*3/uL (160-400); Red Blood Count 4.63 X10*6/uL (4.60-5.80); Red Cell Distribution Width 12.8 % (11.0-16.0); White Blood Count 7.2 X10*3/uL (4.8-10.8)
[2024-08-29 17:14] LABS: Prothrombin Time 11.6 SEC (10.9-12.4)
[2024-08-29 17:16] LABS: Partial Thromboplastin Time 32.5 SEC (26.0-36.8)
[2024-08-29 17:26] LABS: Alanine Aminotransferase 39 U/L (0-40); Albumin Level 4.1 g/dL (3.5-5.0); Anion Gap 14 (12-20); Aspartate Amino Transferase 24 U/L (5-37); Bilirubin Direct 0.1 mg/dL (0.0-0.5); Bilirubin Total 0.3 mg/dL (0.0-1.0); Blood Urea Nitrogen 15 mg/dL (9-16); Calcium 9.4 mg/dL (8.4-10.2); Carbon Dioxide 22 mmol/L (22-29); Chloride 109 mmol/L (96-108); Creatinine Clr Calc Pharmacy 88.6; Estimated Glomerular Filt Rate > 60; Glucose Random 113 mg/dL (60-115); Lipase 20 U/L (8-78); Potassium 4.2 mmol/L (3.3-5.1); Sodium 141 mmol/L (135-145); Total Protein 6.7 g/dL (6.5-8.0)
[2024-08-29 17:57] LABS: Alkaline Phosphatase 57 U/L (39-117)
[2024-08-29 19:18] VITALS: BP 113/73; PULSE 64; RESP 16; TEMP 36.7; O2SAT 95
[2024-08-29 20:55] LABS: MANUAL DIFF FLAG NO
[2024-08-29 20:59] LABS: Basophils Percent Auto 0.4 % (0-2); Eosinophils Absolute Auto 0.3 X10*3/uL (0.0-0.4); Eosinophils Percent Auto 3.6 % (0-4); Hematocrit 40.5 % (42.0-52.0); Hemoglobin 14.1 g/dl (14.0-18.0); Imm Gran Abs Auto 0.01 X10*3/uL (0.00-0.03); Imm Gran Pct Auto 0.1 % (0.0-0.4); Lymphocytes Absolute Auto 1.9 X10*3/uL (1.2-4.9); Lymphocytes Percent Auto 27.9 % (20-40); Mean Corpuscular HGB Conc 34.8 g/dl (31.0-36.0); Mean Corpuscular Hemoglobin 31.1 pg (27.0-33.0); Mean Corpuscular Volume 89.4 fL (80.0-98.0); Mean Platelet Volume 9.6 fL (9.4-12.4); Monocytes Absolute Auto 0.5 X10*3/uL (0.1-1.2); Monocytes Percent Auto 6.9 % (2-11); Neutrophils Absolute Auto 4.3 x10*3/uL (2.0-8.3); Neutrophils Percent Auto 61.1 % (45-73); Platelet Count 241 X10*3/uL (160-400); Red Blood Count 4.53 X10*6/uL (4.60-5.80); Red Cell Distribution Width 12.9 % (11.0-16.0)
[2024-08-29] MEDS: iohexoL 350 MG/ML 100 ML INFUS..BTL 85 ML IV (21:08)
[2024-08-29 21:45] VITALS: BP 121/84; PULSE 70; RESP 16; TEMP 36.8; O2SAT 95
[2024-08-29 23:10] VITALS: BP 125/82; PULSE 62; RESP 16; TEMP 36.7; O2SAT 98
== END 2024-08-29 23:15 | disposition home or self-care (01) ==
PROVIDERS: Physician Assistant Medical; Emergency Provider Internal Medicine; PCP Family Medicine
DX: K57.30 Diverticulosis of large intestine without perforation or abscess without bleeding (principal); K62.5 Hemorrhage of anus and rectum; Z79.899 Other long term (current) drug therapy; Z87.891 Personal history of nicotine dependence
CPT/HCPCS: 36415; 74177; 80048; 80076; 83690; 83735; 85025; 85610; 85730; 99284; Q9967

== ENCOUNTER 2024-09-07 13:02 | Outpatient (AMB) | payer OTHER, SELFPAY ==
--- NOTE | 2024-09-07 12:38 | A.OFFVIS_ITS ---
Intake Visit Reasons: 1m/PSA Intake Note: Patient is present for 1m/PSA Urology Medication:NONE Antibiotic Allergy:NONE Blood Thinner:NONE Production Checker Required: Yes Production Checker Name: [id number] Information Interpreted: non-clinical & clinical Allergies benzocaine [From Chloraseptic] Allergy (Unknown, Verified 09/07/24 13:03) UNKNOWN menthol [From Chloraseptic] Allergy (Unknown, Verified 09/07/24 13:03) UNKNOWN From Chloraseptic Allergy (Unknown, Uncoded 09/07/24 13:03) UNKNOWN Seafood Allergy (Unknown, Uncoded 09/07/24 13:03) ITCHY THROAT seafood Allergy (Unknown, Uncoded 09/07/24 13:03) Unknown Medication List - Last Reconciled 09/07/24 by Kim Jacobo MD aripiprazole (Abilify) 2 mg PO DAILY baclofen 10 mg PO BID oxycodone-acetaminophen 7.5-325 mg 1 tab PO Q8H PRN tadalafil (Cialis) 5 mg PO DAILY HPI Comments Details: 09/07/24--FU PSA, Cialis 5 mg daily refilled. 02/24/24--PSA--5.2 06/18/24--PSA 4.36 Discussed PSA results. Schedule Transrectal Ultrasound guided biopsy of the prostate. Discussed risks to include but not limited to pain, blood in stool, urine and semen, septicemia, need to repeat biopsy. Will schedule in the OR. The patient is on chronic opioid use. Review of chart: 06/18/23-- here for FU for elevated PSA and ED. Pt states he did not get the Cialis because he had problems getting it from the pharm. He did not have psa repeated. Cialis resent to pharm with good Rx coupon. PSA today. Will call with results. I have discussed that elevated PSA may indicate changes in the prostate including benign enlargement, cancer and an inflammatory condition. I have discussed doing a biopsy has risks and that management in early detection of prostate cancer may include active surveillance. 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 Presents for [facility] health follow-up to review labs. The patient was initially evaluated 12/30/2023 with complaints of ED. labs were ordered testosterone and PSA. Testosterone level is low normal PSA is elevated. I have discussed repeating the PSA and at this time do not want to place on testosterone replacement due to elevated PSA. Denies family history prostate cancer. He is on oxycodone for sciatica back pain. I have discussed PSA is a blood test, prostate specific antigen and is an enzyme secreted by the prostate gland. Elevated PSA may be due to multiple conditions including prostate inflammatory condition, enlarged prostate or prostate cancer. Discussed consideration for prostate biopsy if repeat PSA remains elevated. I will start on Cialis 5 mg daily. Repeat PSA in 3 months. 02/24/2024---PSA----5.2 ng/mL 02/24/2024---Total and free Testosterone levels -309/44.5 12/30/2023-Kameron is a 53-year-old male who presents for new patient evaluation for hypogonadism. I have reviewed referral notes. The patient is on chronic opioid use for back pain. International index erectile function questionnaire completed score 17 - indicating mild ED. He had labs done in June 2023. 06/21/2023 FSH -7.6-(N), LH-4.2-(N), 06/28/2023-- total testosterone 504 WNL, free testosterone 75.1 WNL. Plan I have discussed repeating lab work. [facility] Medical History Back pain Hypogonadism in male Surgical History Hx of colonoscopy Hx of circumcision Hx of appendectomy Family History Mother Diabetes Maternal Grandmother Diabetes Maternal Aunt Diabetes Cancer Maternal Aunt Diabetes Social History Household Members Other:: Alcohol intake: former Patient Tobacco Use Status: Former Tobacco user Current occupational status: disabled Review of Systems Const All systems reviewed & are unremarkable except as noted in HPI and below Reports no additional complaints Eyes Reports no additional complaints ENT Reports no additional complaints Card Reports no additional complaints Resp Reports no additional complaints GI Reports no additional complaints Reports as per HPI Musc Reports no additional complaints Skin/Breast Reports system reviewed and no additional complaints, except as documented Neuro Reports no additional complaints Psych Reports no additional complaints Endo Reports no additional complaints Pj/Lymph Reports no additional complaints Aller/Immun Reports no additional complaints Telehealth Telehealth Telehealth Platform: [employer] Location of provider rendering services: practice address Location of patient: address on file Patient Identification confirmed using: Name, : Yes Telehealth method: voice only Patient verbally consented to treatment: Yes Patient verbally consented to billing insurance company: Yes Patient informed of any privacy concerns related to visit: Yes Minutes spent on Phone/Video with Pt.: 18 Assessment & Plan Assessment & Plan (1) Erectile dysfunction: Code(s): N52.9 - Male erectile dysfunction, unspecified Category: Medical (2) Chronic, continuous use of opioids: Code(s): F11.90 - Opioid use, unspecified, uncomplicated Category: Medical (3) Elevated PSA: Code(s): R97.20 - Elevated prostate specific antigen [PSA] Category: Medical Plan Schedule prostate biopsy in the OR. Cialis 5 mg daily. Medications: New levofloxacin Start Levaquin 2 days prior to prostate biopsy 500 mg PO DAILY 4 days 4 tabs 0RF For prostate biopsy Refilled tadalafil (Cialis) [id number] [facility] [id number] Member [id number] 5 mg PO DAILY 30 tabs 3RF Patient Instructions: The patient had an opportunity to ask questions regarding treatment plan. The patient expressed understanding and agreement with the above treatment plan. The patient is aware they should contact our office by phone for worsening of their current condition or the appearance of new symptoms. Compliance is encouraged with any medications and followup testing that is ordered. It is a privilege to be allowed the opportunity to participate in the urologic care of your patient. If you have any questions or concerns regarding treatment for the above conditions please do not hesitate to contact me. The office telephone contact is [phone]. This note is constructed in part using voice recognition software. While every effort has been made to ensure accuracy human resources receptionist errors may have been included. Yours sincerely, Kim Jacobo MD Coding Level of Care Code Tele Est Pt Level 4 (49859) Diagnoses Erectile dysfunction N52.9 Chronic, continuous use of opioids F11.90 Elevated PSA R97.20
== END 2024-09-07 13:40 | disposition home or self-care (01) ==
LOC: HO.HUSH 13:02
PROVIDERS: PCP Family Medicine; Visit Provider Urology
DX: N52.9 Male erectile dysfunction, unspecified (principal); F11.90 Opioid use, unspecified, uncomplicated; R97.20 Elevated prostate specific antigen [PSA]
CPT/HCPCS: 99442

== ENCOUNTER → 2024-09-07 13:02 | Outpatient (BNVA) | payer OTHER, SELFPAY | PROVIDERS: PCP Family Medicine; Visit Provider Urology ==

== ENCOUNTER 2024-10-06 09:52 | Day surgery (SDC) | payer OTHER, SELFPAY ==
[2024-10-01 16:03] VITALS: BMI 33.4
--- NOTE | 2024-10-05 09:37 | HO.ANESPROP2 ---
HPI - Anesthesia Eval Consult details Narrative: 54yo M for Prostate Needle Biopsy PMFSH Active Problems Active Problems: All Active Problems Elevated PSA (Acute) Screening PSA (prostate specific antigen) (Acute) Situational anxiety (Acute) Claustrophobia (Acute) Hemorrhoids (Acute) Diverticular disease (Acute) Hyperplastic colon polyp (Acute) Right shoulder tendonitis (Acute) Osteoarthritis of right acromioclavicular joint (Acute) Cervical spondylosis with radiculopathy (Acute) Sacroiliac joint dysfunction of both sides (Acute) Lumbosacral spondylosis with radiculopathy (Acute) Chronic, continuous use of opioids (Acute) Erectile dysfunction (Acute) History of chronic constipation (Acute) Encounter for screening colonoscopy (Acute) Past Medical History Medical History Back pain Hypogonadism in male Family History Family History Mother Diabetes Maternal Grandmother Diabetes Maternal Aunt Diabetes Cancer Maternal Aunt Diabetes Family history of problems with anesthesia: No Surgical History Surgical History Hx of colonoscopy Hx of circumcision Hx of appendectomy Social History Social History (Updated 10/01/24 @ 16:08 by Pura Osman RN) Household Members: Spouse Household Members Other:: Housing: Apartment Are you a primary director of health care marketing to a significant other at home: No Do you presently have visiting nurse or other home services: No Alcohol intake: former Patient Tobacco Use Status: Former Tobacco user Tobacco use type: Cigarette Substance Use Type: Marijuana Current occupational status: disabled Meds Allergies Allergy/AdvReac Type Severity Reaction Status Date / Time shellfish derived [shellfish] Allergy Severe Itchy Verified 10/06/24 09:59 throat benzocaine Allergy Intermediate irritated Verified 10/06/24 09:59 [From Chloraseptic] throat menthol [From Chloraseptic] Allergy Intermediate irritated Verified 10/06/24 09:59 throat From Chloraseptic Allergy Intermediate irritated Uncoded 10/01/24 16:02 throat Home Medications ?Medication ?Instructions ?Recorded ?Confirmed ?Last Taken ?Type aripiprazole 2 mg tablet (Abilify) 2 mg PO DAILY 11/13/21 10/01/24 Unknown History oxycodone-acetaminophen 7.5 mg-325 1 tab PO Q8H PRN Pain 01/11/22 10/06/24 10/06/24 History mg tablet baclofen 10 mg tablet 10 mg PO BID 12/30/23 10/06/24 10/06/24 History Exam Height,Weight and Vital Signs: Height 5 ft 8 in Weight 99.79 kg Pertinent Lab Results Pertinent Lab Results: Laboratory Tests 08/29/24 08/29/24 16:49 20:51 WBC 7.0 Hgb 14.1 Hct 40.5 L Plt Count 241 Sodium 141 Potassium 4.2 Chloride 109 H Carbon Dioxide 22 BUN 15 Creatinine 1.11 Assessment and Plan Assessment Anesthesia Assessment: Chart Reviewed Final Anesthetic Review Family History of Problems with Anesthesia: No
[2024-10-06 10:21] VITALS: BMI 32.4
--- NOTE | 2024-10-06 10:21 | MHC.SHP ---
Pre-Procedural Eval Section A - 24 Hr Update-Section A only Date of Service: 10/06/24 The patient is an INPATIENT: No The patient has been examined within 24 hours of the surgical procedure. The History & Physical has been completed within 30 days and I have reviewed it.: Yes Section B - Complete if H&P > 30 days Chief Complaint: Elevated prostate specific antigen [PSA] Allergies: Allergies Allergy/AdvReac Type Severity Reaction Status Date / Time shellfish derived [shellfish] Allergy Severe Itchy Verified 10/06/24 09:59 throat benzocaine Allergy Intermediate irritated Verified 10/06/24 09:59 [From Chloraseptic] throat menthol [From Chloraseptic] Allergy Intermediate irritated Verified 10/06/24 09:59 throat From Chloraseptic Allergy Intermediate irritated Uncoded 10/01/24 16:02 throat Plan Diagnosis/Plan: Unchanged I have reviewed the history and physical and performed a pertinent physical examination on my patient. No changes have occurred unless specified. Transrectal Ultrasound guided biopsy of the prostate. Discussed risks to include but not limited to pain, blood in stool, urine and semen, septicemia, need to repeat biopsy. Time Spent With Patient Time: Total time managing care of this patient today ____ minutes.
[2024-10-06] MEDS: Lactated Ringers 1,000 ML 100 ML IVCONT (10:34)
--- NOTE | 2024-10-06 11:44 | W.PM.OPN ---
Operative Note Operative Note Date of Service: 10/06/24 Narrative: PreOperative Diagnosis:? ? Elevated PSA Post Operative Diagnosis:??Elevated PSA Procedure:?1. Transrectal ultrasound guided biopsy of the prostate 12 core 2. Transrectal ultrasound measurement of prostate 3. Transrectal ultrasound guided pudendal nerve block Surgeon:?Dr Kim Jacobo Anesthesia:? General Indications for procedure: Elevated PSA Procedure: Preoperative antibiotics confirmed. The patient took Levaquin p.o. this morning. After informed consent was verified the patient was brought to the operating room. Anesthesia was performed and the patient was repositioned and was placed on the procedure table in left lateral position. Safety pause time-out performed. Iodine mixed with lubricant jelly 30 cc placed per rectum. Ultrasound probe was placed per rectum. The prostate was visualized. The prostate was measured width 4.67 cm, height 3.49 cm, length 5.42 cm with a volume of 46.3 mL. An ultrasound guided pudendal nerve block was performed using 10 cc of 1% lidocaine. A 12 core biopsy was performed from the left base, left mid, left apex and right base, mid, apex 2 biopsies from each section. The ultrasound probe was removed and digital palpation of the prostate for 1-2 minutes for hemostasis was performed. The patient tolerated the procedure well. Complications: None
[2024-10-06 11:57] VITALS: BP 104/72; PULSE 74; RESP 14; TEMP 36.2; O2SAT 96
[2024-10-06 12:02] VITALS: BP 115/69; PULSE 80; RESP 17; O2SAT 96
[2024-10-06 12:07] VITALS: BP 112/73; PULSE 80; RESP 16; O2SAT 97
[2024-10-06 12:12] VITALS: BP 121/72; PULSE 81; RESP 16; O2SAT 96
[2024-10-06 12:17] VITALS: BP 118/76; PULSE 81; RESP 17; O2SAT 95
[2024-10-06 12:27] VITALS: BP 116/77; PULSE 79; RESP 18; TEMP 36.2; O2SAT 96
== END 2024-10-06 13:16 | disposition home or self-care (01) ==
PROVIDERS: PCP Family Medicine; Visit Provider Urology
PROC: (CPT 55700; principal; 2024-10-06 11:30)
DX: R97.20 Elevated prostate specific antigen [PSA] (principal); N42.32 Atypical small acinar proliferation of prostate; N42.31 Prostatic intraepithelial neoplasia
CPT/HCPCS: 55700; 76942; 88305; 88344; J1100; J2003; J2250; J2405; J2704; J3010

== ENCOUNTER → 2024-10-06 09:52 | Outpatient (BNV) | payer OTHER, SELFPAY | PROVIDERS: PCP Family Medicine; Visit Provider Urology | DX: R97.20 Elevated prostate specific antigen [PSA] (principal) | CPT/HCPCS: 55700; 76872 ==

== ENCOUNTER 2024-10-30 14:43 | Outpatient (AMB) | payer OTHER, SELFPAY ==
--- NOTE | 2024-10-30 11:29 | MHC.OFFVIS ---
Intake Visit Reasons: Prostate biopsy results Intake Note: Patient is present for Prostate Biopsy Results Urology Med: Tadalafil Antibiotic Allergy: None Blood Thinner: None Punchboard Filling Machine Operator Required: Yes Punchboard Filling Machine Operator Name: Jennifer [id number] Administration Clerk: Administration Clerk Present Accompanied by: Family/Other Allergies shellfish derived [shellfish] Allergy (Severe, Verified 10/30/24 14:49) Itchy throat benzocaine [From Chloraseptic] Allergy (Intermediate, Verified 10/30/24 14:49) irritated throat menthol [From Chloraseptic] Allergy (Intermediate, Verified 10/30/24 14:49) irritated throat From Chloraseptic Allergy (Intermediate, Uncoded 10/30/24 14:49) irritated throat Medication List - Last Reconciled 10/30/24 by Kim Jacobo MD aripiprazole (Abilify) 2 mg PO DAILY aripiprazole 5 mg PO DAILY baclofen 10 mg PO BID finasteride (Proscar) 5 mg PO DAILY oxycodone-acetaminophen 7.5-325 mg 1 tab PO Q8H PRN sulfamethoxazole-trimethoprim 800-160 mg (Bactrim DS) 1 tab PO BID tadalafil (Cialis) 5 mg PO DAILY HPI Comments Details: 10/30/24-- sp prostate bx 10/06/24 for elevated PSA. path results Left mid lateral: Atypical small acinar proliferation suspicious for adenocarcinoma, and high-grade prostatic intraepithelial neoplasia. He complains of episodes of urge incontinence since the biopsy, states still seeing blood in semen. Plan bactrim ds bid for 10 days, proscar 5 mg, will monitor PSA closely. MRI in 6 months. 09/07/24--FU PSA, Discussed PSA results. Schedule Transrectal Ultrasound guided biopsy of the prostate. Discussed risks to include but not limited to pain, blood in stool, urine and semen, septicemia, need to repeat biopsy. Will schedule in the OR. The patient is on chronic opioid use. Cialis 5 mg daily refilled. 02/24/24--PSA--5.2 06/18/24--PSA 4.36. 06/18/23-- here for FU for elevated PSA and ED. Pt states he did not get the Cialis because he had problems getting it from the pharm. He did not have psa repeated. Cialis resent to pharm with good Rx coupon. PSA today. Will call with results. I have discussed that elevated PSA may indicate changes in the prostate including benign enlargement, cancer and an inflammatory condition. I have discussed doing a biopsy has risks and that management in early detection of prostate cancer may include active surveillance. 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 Presents for [facility] health follow-up to review labs. The patient was initially evaluated 12/30/2023 with complaints of ED. labs were ordered testosterone and PSA. Testosterone level is low normal PSA is elevated. I have discussed repeating the PSA and at this time do not want to place on testosterone replacement due to elevated PSA. Denies family history prostate cancer. He is on oxycodone for sciatica back pain. I have discussed PSA is a blood test, prostate specific antigen and is an enzyme secreted by the prostate gland. Elevated PSA may be due to multiple conditions including prostate inflammatory condition, enlarged prostate or prostate cancer. Discussed consideration for prostate biopsy if repeat PSA remains elevated. I will start on Cialis 5 mg daily. Repeat PSA in 3 months. 02/24/2024---PSA----5.2 ng/mL 02/24/2024---Total and free Testosterone levels -309/44.5 12/30/2023-Kameron is a 53-year-old male who presents for new patient evaluation for hypogonadism. I have reviewed referral notes. The patient is on chronic opioid use for back pain. International index erectile function questionnaire completed score 17 - indicating mild ED. He had labs done in June 2023. 06/21/2023 FSH -7.6-(N), LH-4.2-(N), 06/28/2023-- total testosterone 504 WNL, free testosterone 75.1 WNL. Plan I have discussed repeating lab work. [facility] Medical History Back pain Hypogonadism in male Surgical History Hx of colonoscopy Hx of circumcision Hx of appendectomy Family History Mother Diabetes Maternal Grandmother Diabetes Maternal Aunt Diabetes Cancer Maternal Aunt Diabetes Social History Household Members: Spouse Household Members Other:: Housing: Apartment Are you a primary manager medicare marketing to a significant other at home: No Do you presently have visiting nurse or other home services: No Alcohol intake: former Patient Tobacco Use Status: Former Tobacco user Tobacco use type: Cigarette Substance Use Type: Marijuana Current occupational status: disabled Review of Systems Const All systems reviewed & are unremarkable except as noted in HPI and below Reports no additional complaints Eyes Reports no additional complaints ENT Reports no additional complaints Card Reports no additional complaints Resp Reports no additional complaints GI Reports no additional complaints Reports as per HPI Musc Reports no additional complaints Skin/Breast Reports system reviewed and no additional complaints, except as documented Neuro Reports no additional complaints Psych Reports no additional complaints Endo Reports no additional complaints Pj/Lymph Reports no additional complaints Aller/Immun Reports no additional complaints Results Reviewed Results Reviewed: Prostate Biopsy---Collected: 10/06/24 Location: [facility] Received: 10/06/24 Diagnosis A: Left base lateral: High-grade prostatic intraepithelial neoplasia. B: Left base medial: Benign prostatic tissue. C: Left mid lateral: Atypical small acinar proliferation suspicious for adenocarcinoma, and high- grade prostatic intraepithelial neoplasia. D: Left mid medial: Benign prostatic tissue. E: Left apex lateral: Benign prostatic tissue. F: Left apex medial: Benign prostatic tissue. G: Right base lateral: Benign prostatic tissue. H: Right base medial: Focal atypical glands. I: Right mid lateral: Benign prostatic tissue. J: Right mid medial: Benign prostatic tissue. K: Right apex lateral: Benign prostatic tissue. L: Right apex medial: Focal atypical glands. Clinical History Elevated PSA Assessment & Plan Assessment & Plan (1) Elevated PSA: Code(s): R97.20 - Elevated prostate specific antigen [PSA] Category: Medical (2) Atypical small acinar proliferation of prostate: Code(s): N42.32 - Atypical small acinar proliferation of prostate Category: Medical (3) UTI symptoms: Code(s): R39.9 - Unspecified symptoms and signs involving the genitourinary system Category: Medical Plan Plan bactrim ds bid for 10 days, proscar 5 mg, will monitor PSA closely. MRI in 6 months. Medications: New sulfamethoxazole-trimethoprim 800-160 mg (Bactrim DS) 1 tab PO BID 20 tabs 0RF finasteride (Proscar) 5 mg PO DAILY 90 tabs 3RF enlarged prostate Discontinued levofloxacin Start Levaquin 2 days prior to prostate biopsy Discontinued Reason: Patient Completed Course 500 mg PO DAILY 4 days 4 tabs 0RF For prostate biopsy Patient Instructions: The patient had an opportunity to ask questions regarding treatment plan. The patient expressed understanding and agreement with the above treatment plan. The patient is aware they should contact our office by phone for worsening of their current condition or the appearance of new symptoms. Compliance is encouraged with any medications and followup testing that is ordered. It is a privilege to be allowed the opportunity to participate in the urologic care of your patient. If you have any questions or concerns regarding treatment for the above conditions please do not hesitate to contact me. The office telephone contact is [phone]. This note is constructed in part using voice recognition software. While every effort has been made to ensure accuracy merchandise planner errors may have been included. Yours sincerely, Kim Jacobo MD Coding Level of Care Code Est Pt Level 4 (43922) Diagnoses Elevated PSA R97.20 Atypical small acinar proliferation of prostate N42.32 UTI symptoms R39.9
== END 2024-10-30 15:13 | disposition home or self-care (01) ==
PROVIDERS: PCP Family Medicine; Visit Provider Urology
DX: R97.20 Elevated prostate specific antigen [PSA] (principal); N42.32 Atypical small acinar proliferation of prostate; R39.9 Unspecified symptoms and signs involving the genitourinary system
CPT/HCPCS: 99214

== ENCOUNTER → 2024-10-30 14:43 | Outpatient (BNVA) | payer OTHER, SELFPAY | PROVIDERS: PCP Family Medicine; Visit Provider Urology | DX: R97.20 Elevated prostate specific antigen [PSA] (principal); N42.32 Atypical small acinar proliferation of prostate; R39.9 Unspecified symptoms and signs involving the genitourinary system | CPT/HCPCS: 99212 ==

== ENCOUNTER 2025-03-23 09:47 | Outpatient (REF) | payer OTHER, SELFPAY ==
--- OUTSIDE RECORDS SUMMARY | 2025-03-23 10:57 | XMS_ITS | Encounter Summary ---
Author Organization [employer] Address [address] [place] [address] Care Team Providers Care Customs Compliance Analyst Name Role Phone Karla Manjarrez MD Primary Care Provider [phone] Reason for Visit * Reason Comments Med Refill Encounter Details Date Type Department Care Team ([facility] Contact Info) Description 04/06/2024 Refill [facility] [address], [place] [phone] Karla Manjarrez MD [address], [place] [id number] Chronic low back pain with bilateral sciatica, unspecified back pain laterality Social History Tobacco Use Types Packs/Day Years Used Date Smoking Tobacco: Former Cigarettes 0.5 3 Depression Answer Date Recorded Patient Health Questionnaire-9 Score 6 12/11/2022 Housing Stability Answer Date Recorded What is your housing situation today? I have songelian christie 02/03/[address] you li ve. Do you have problems with any of the following? None of the above 02/03/2024 Food Insecurity Answer Date Recorded Within the past 12 months, y ou worried that your food would run out before you got money to buy more: Never True 02/03/2024 Within the past 12 months,th e food you bought just didn't last and you didn't have enough money to get more: Never True Transportation Answer Date Recorded In the past 12 months, has l ack of transportation kept you from medical appts, meetings, work or from getting things needed for daily living? No 02/03/2024 Utilities Answer Date Recorded In the past 12 months, has t he electric, gas, oil or water [employer] threatened to shut off services in your home? No 02/03/2024 Depression Answer Date Recorded Patient Health Questionnaire-2 Score 1 12/11/2022 Sex and Gender Information Value Date Recorded Sex Assigned at Male 08/13/2022 10:16 AM EDT Legal Sex Male 10:16 AM EDT Gender Identity Male 08/13/2022 10:16 AM EDT Sexual Orientation Choose not to disclose 2021 10:16 AM EDT documented as of this encounter Plan of Treatment Upcoming Encounters Date Type Department Care Team (Late st Contact Info) Description 04/20/2025 11:00 AM EDT Office Visit [facility] [address] [place] [address] documented as of this encounter Visit Diagnoses Diagnosis Chronic low back pain with bilateral sciatica, unspecified back pain laterality documented in this encounter Additional Health Concerns Assessment Noted Time PHQ-9 Depression Total Score: 6 12/11/19 23 3:13 PM EST documented as of this encounter Care Teams Customs Compliance Analyst Relationship Specialty Start Date End Date Karla Manjarrez MD [address] [place] [address] PCP - General Family Medicine 09/23/20 Justine Cyr NP Psychiatrist 02/21/24 Kim Jacobo MD [address] [place] [address] [place] [address] Surgeon Urology 08/10/24 documented as of this encounter
[2025-03-23 11:46] LABS: Prostate Specific Antigen 2.83 ng/mL (<0.05-4.0)
== END 2025-03-23 09:48 | disposition home or self-care (01) ==
LOC: HO.LAB 09:47
PROVIDERS: PCP Family Medicine; Visit Provider Urology
DX: Z12.5 Encounter for screening for malignant neoplasm of prostate (principal); N52.9 Male erectile dysfunction, unspecified; R97.20 Elevated prostate specific antigen [PSA]
CPT/HCPCS: 36415; 84153

== ENCOUNTER 2025-04-02 08:30 | Outpatient (REF) | payer OTHER, SELFPAY | END 2025-04-02 08:31 | disposition home or self-care (01) | LOC: HO.MRI 08:30 | PROVIDERS: PCP Family Medicine; Visit Provider Urology | DX: Z13.89 Encounter for screening for other disorder (principal) ==

== ENCOUNTER 2025-04-14 08:25 | Outpatient (REF) | payer OTHER, SELFPAY ==
--- NOTE | ~2025-04-14 | MR_ITS ---
EXAMINATION: MR PROSTATE WITHOUT THEN WITH IV CONTRAST HISTORY: R97.20 - Elevated prostate specific antigen [PSA] TECHNIQUE: 1.5T body coil survey of the pelvis was performed. Phase array coil imaging of the prostate was performed in multiplanar high resolution axial, coronal, sagittal fast spin echo T2 and axial T1 weighted imaging sequences. Axial diffusion imaging at intermediate and high field performed with ADC mapping. Next, mL Gadavist was given by intravenous infusion, and dynamic axial imaging performed. COMPARISON: There are no prior studies available for comparison. CLINICAL DATA: Most recent PSA: 2.83 ng/mL on 03/23/2025. PSA Density: 0.075 ng/mL squared Prostate Biopsy: Previous biopsy on 10/06/2024 demonstrating atypical small acinar proliferation, suspicious for adenocarcinoma. FINDINGS: Prostate size: 4.8 x 4.3 x 3.5 cm. Calculated prostate volume is 37.6 mL. Hemorrhage: None. Transitional Zone: There is moderate heterogeneous nodular hypertrophy of the transitional zone. Peripheral Zone: There is diffuse mild decreased T2 signal intensity throughout the peripheral zone which can be seen in the setting of prostatitis of scarring. No focal abnormality is seen. There are no foci of restricted diffusion. Seminal Vesicles/Ejaculatory Ducts: Symmetric and normal in signal and caliber. Pelvic Lymph Nodes: No obturator or internal iliac lymph nodes meeting size criteria for adenopathy. Marrow Signal: Normal marrow signal and enhancement without focal lesion identified. MR/MR Prostate wo/w con IMPRESSION: No discrete focus of abnormal signal intensity is identified to suggest clinically significant prostate carcinoma. PI-RADS 2: Low (clinically significant cancer is unlikely to be present) PI-RADS Assessment Categories PI-RADS 1: Very low (clinically significant cancer is highly unlikely to be present) PI-RADS 2: Low (clinically significant cancer is unlikely to be present) PI-RADS 3: Intermediate (the presence of clinically significant cancer is equivocal) PI-RADS 4: High (clinically significant cancer is likely to be present) PI-RADS 5: Very high (clinically significant cancer is highly likely to be present) [employer]. MR Prostate Imaging Reporting and Data System version 2.1. [email or web address]/Quality-Safety/[email or web address]/ Electronically signed by: Devon Pruett MD 04/14/2025 12:11 PM EDT
== END 2025-04-14 08:26 | disposition home or self-care (01) ==
LOC: HO.MRI 08:25
PROVIDERS: PCP Family Medicine; Visit Provider Urology
DX: N42.32 Atypical small acinar proliferation of prostate (principal); R97.20 Elevated prostate specific antigen [PSA]
CPT/HCPCS: 72197; A9585

== ENCOUNTER → 2025-04-14 08:25 | Outpatient (BNV) | payer OTHER, SELFPAY | PROVIDERS: PCP Family Medicine; Visit Provider Radiology Diagnostic Radiology | DX: R97.20 Elevated prostate specific antigen [PSA] (principal) | CPT/HCPCS: 72197 ==

== ENCOUNTER 2025-04-20 12:32 | Outpatient (REF) | payer OTHER, SELFPAY ==
--- OUTSIDE RECORDS SUMMARY | 2025-04-20 13:17 | XMS_ITS | Encounter Summary ---
Author Organization [email or web address] Address [address] [place] [address] Care Team Providers Care Intermediate Designer Name Role Phone Karla Manjarrez MD Primary Care Provider [phone] Reason for Visit * Reason Onset Date Comments Med Refill 03/26/2025 Encounter Details Date Type Department Care Team (Late st Contact Info) Description 03/26/2025 Telephone [facility] MEDICINE [address] [place] [address] Karla Manjarrez MD [address] [place] [address] Med Refill Social History Tobacco Use Types Packs/Day Years Used Date Smoking Tobacco: Former Cigarettes 0.5 3 Depression Answer Date Recorded Patient Health Questionnaire-9 Score 11 08/10/2024 Patient Health Questionnaire-9 Score 11 08/10/2024 Last PHQ-9: Questionnaire Data Not on file 1 Housing Stability Answer Date Recorded What is your housing situation today? I have song christie 02/03/[address] you [...] t he electric, gas, oil or water company threatened to shut off services in your home? No 02/03/2024 Depression Answer Date Recorded Patient Health Questionnaire-2 Score 3 08/10/2024 Sex and Gender Information Value Date Recorded Sex Assigned at Male 08/13/2022 10:16 AM EDT Legal Sex Male 10:16 AM EDT Gender Identity Male 08/13/2022 10:16 AM EDT Sexual Orientation Choose not to disclose 2021 10:16 AM EDT documented as of this encounter Miscellaneous Notes * Telephone Encounter - Sugar Salomon - 03/26/2025 8:45 AM EDT TC from pt requesting medication refill. Medications needing refill : oxyCODONE-acetaminophen (Percocet) 7.5-325 MG tablet To be sent to: [facility] - [place], [place] - [address] [place] [address] documented in this encounter Plan of Treatment Upcoming Encounters Date Type Department Care Team (Late st Contact Info) Description 06/22/2025 11:00 AM EDT Office Visit [facility] MED[facility]INE [address] [place] [address] documented as of this encounter Visit Diagnoses Not on filedocumented in this encounter Additional Health Concerns Assessment Noted Time PHQ-9 Depression Total Score: 11 024 1:26 PM EDT documented as of this encounter Care Teams Intermediate Designer Relationship Specialty Start Date End Date Karla Manjarrez MD [address] [place] [address] PCP - General Family Medicine 09/23/20 Justine Cyr NP Psychiatrist 02/21/24 Kim Jacobo MD [address] [place] [address] [place] [address] Surgeon Urology 08/10/24 documented as of this encounter
[2025-04-23 11:11] LABS: Nordiazepam, GCMS Urine NEGATIVE; Oxazepam, GCMS Urine 61
[2025-04-23 11:12] LABS: Alprazolam, GCMS Urine NEGATIVE; Lorazepam GCMS Urine NEGATIVE
[2025-04-23 11:13] LABS: Alphahydroxytriazolam, GCMS Ur NEGATIVE; Temazepam, GCMS Urine 57
[2025-04-23 11:14] LABS: Alphahydroxymidazolam,GCMS Ur NEGATIVE
[2025-04-23 11:15] LABS: Aminoclonazepam, GCMS Urine NEGATIVE; Flurazepam Metabolite,GCMS Ur NEGATIVE
== END 2025-04-20 12:33 | disposition home or self-care (01) ==
LOC: HO.HHCLNP 12:32
PROVIDERS: Visit Provider Registered Nurse
DX: M54.50 Low back pain, unspecified (principal); G89.29 Other chronic pain
CPT/HCPCS: 80346

== ENCOUNTER 2025-06-04 14:09 | Outpatient (AMB) | payer OTHER, SELFPAY ==
--- NOTE | 2025-06-04 14:11 | A.OFFVIS_ITS ---
Intake Visit Reasons: 7m/MRI/PSA Intake Note: Patient is present for 7M/MRI/PSA * 04/14 MRI * 03/23 PSA:2.83 Urology Medication: TADALAFIL,FINASTERIDE Antibiotic Allergy:NONE Blood Thinner:NONE Laceworker Required: Yes Laceworker Language: Marketing Summer Intern Name: Danish [facility] certified Fijian Information Interpreted: non-clinical & clinical Allergies shellfish derived (shellfish) Allergy (Severe, Verified 06/04/25 14:14) Itchy throat benzocaine (From Chloraseptic) Allergy (Intermediate, Verified 06/04/25 14:14) irritated throat menthol (From Chloraseptic) Allergy (Intermediate, Verified 06/04/25 14:14) irritated throat From Chloraseptic Allergy (Intermediate, Uncoded 06/04/25 14:14) irritated throat Medication List - Last Reconciled 06/04/25 by Kim Jacobo MD aripiprazole (Abilify) 2 mg PO DAILY aripiprazole 5 mg PO DAILY baclofen 10 mg PO BID diazepam (Valium) 5 mg PO .dose finasteride (Proscar) 5 mg PO DAILY oxycodone-acetaminophen 7.5-325 mg 1 tab PO Q8H PRN sulfamethoxazole-trimethoprim 800-160 mg (Bactrim DS) 1 tab PO BID tadalafil (Cialis) 5 mg PO DAILY HPI Comments Details: 06/04/25--Kameron is here in follow-up for elevated PSA. He had an MRI completed April 2025. No discrete lesions noted in the prostate. Repeat PSA 03/23/2025 was 2.83. We will resume the tadalafil 5 mg daily. Continue Proscar 5 mg daily follow-up in 9 months, repeat PSA at that time. Results: MR prostate 04/14/25-- No discrete focus of abnormal signal intensity is identified to suggest clinically significant prostate carcinoma. PI-RADS 2: Low (clinically significant cancer is unlikely to be present) 10/30/24-- sp prostate bx 10/06/24 for elevated PSA. path results Left mid lateral: Atypical small acinar proliferation suspicious for adenocarcinoma, and high-grade prostatic intraepithelial neoplasia. He complains of episodes of urge incontinence since the biopsy, states still seeing blood in semen. Plan bactrim ds bid for 10 days, proscar 5 mg, will monitor PSA closely. MRI in 6 months. 09/07/24--FU PSA, Discussed PSA results. Schedule Transrectal Ultrasound guided biopsy of the prostate. Discussed risks to include but not limited to pain, blood in stool, urine and semen, septicemia, need to repeat biopsy. Will schedule in the OR. The patient is on chronic opioid use. Cialis 5 mg daily refilled. 02/24/24--PSA--5.2 06/18/24--PSA 4.36. 06/18/23-- here for FU for elevated PSA and ED. Pt states he did not get the Cialis because he had problems getting it from the pharm. He did not have psa repeated. Cialis resent to pharm with good Rx coupon. PSA today. Will call with results. I have discussed that elevated PSA may indicate changes in the prostate including benign enlargement, cancer and an inflammatory condition. I have discussed doing a biopsy has risks and that management in early detection of prostate cancer may include active surveillance. 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 Presents for tele health follow-up to review labs. The patient was initially evaluated 12/30/2023 with complaints of ED. labs were ordered testosterone and PSA. Testosterone level is low normal PSA is elevated. I have discussed repeating the PSA and at this time do not want to place on testosterone replacement due to elevated PSA. Denies family history prostate cancer. He is on oxycodone for sciatica back pain. I have discussed PSA is a blood test, prostate specific antigen and is an enzyme secreted by the prostate gland. Elevated PSA may be due to multiple conditions including prostate inflammatory condition, enlarged prostate or prostate cancer. Discussed consideration for prostate biopsy if repeat PSA remains elevated. I will start on Cialis 5 mg daily. Repeat PSA in 3 months. 02/24/2024---PSA----5.2 ng/mL 02/24/2024---Total and free Testosterone levels -309/44.5 12/30/2023-Kameron is a 53-year-old male who presents for new patient evaluation for hypogonadism. I have reviewed referral notes. The patient is on chronic opioid use for back pain. International index erectile function questionnaire completed score 17 - indicating mild ED. He had labs done in June 2023. 06/21/2023 FSH -7.6-(N), LH-4.2-(N), 06/28/2023-- total testosterone 504 WNL, free testosterone 75.1 WNL. Plan I have discussed repeating lab work. [facility] Medical History Back pain Hypogonadism in male Surgical History Hx of colonoscopy Hx of circumcision Hx of appendectomy Family History Mother Diabetes Maternal Grandmother Diabetes Maternal Aunt Diabetes Cancer Maternal Aunt Diabetes Social History Household Members: Spouse Household Members Other:: Housing: Apartment Are you a primary healthcare administrative assistant to a significant other at home: No Do you presently have visiting nurse or other home services: No Alcohol intake: former Patient Tobacco Use Status: Former Tobacco user Tobacco use type: Cigarette Substance Use Type: Marijuana Current occupational status: disabled Review of Systems Const All systems reviewed & are unremarkable except as noted in HPI and below Reports no additional complaints Eyes Reports no additional complaints ENT Reports no additional complaints Card Reports no additional complaints Resp Reports no additional complaints GI Reports no additional complaints Reports as per HPI Musc Reports no additional complaints Skin/Breast Reports system reviewed and no additional complaints, except as documented Neuro Reports no additional complaints Psych Reports no additional complaints Endo Reports no additional complaints Pj/Lymph Reports no additional complaints Aller/Immun Reports no additional complaints Results Reviewed Results Reviewed: Date of Service: 04/14/25 EXAMINATION: MR PROSTATE WITHOUT THEN WITH IV CONTRAST HISTORY: R97.20 - Elevated prostate specific antigen [PSA] TECHNIQUE: 1.5T body coil survey of the pelvis was performed. Phase array coil imaging of the prostate was performed in multiplanar high resolution axial, coronal, sagittal fast spin echo T2 and axial T1 weighted imaging sequences. Axial diffusion imaging at intermediate and high field performed with ADC mapping. Next, mL Gadavist was given by intravenous infusion, and dynamic axial imaging performed. COMPARISON: There are no prior studies available for comparison. CLINICAL DATA: Most recent PSA: 2.83 ng/mL on 03/23/2025. PSA Density: 0.075 ng/mL squared Prostate Biopsy: Previous biopsy on 10/06/2024 demonstrating atypical small acinar proliferation, suspicious for adenocarcinoma. FINDINGS: Prostate size: 4.8 x 4.3 x 3.5 cm. Calculated prostate volume is 37.6 mL. Hemorrhage: None. Transitional Zone: There is moderate heterogeneous nodular hypertrophy of the transitional zone. Peripheral Zone: There is diffuse mild decreased T2 signal intensity throughout the peripheral zone which can be seen in the setting of prostatitis of scarring. No focal abnormality is seen. There are no foci of restricted diffusion. Seminal Vesicles/Ejaculatory Ducts: Symmetric and normal in signal and caliber. Pelvic Lymph Nodes: No obturator or internal iliac lymph nodes meeting size criteria for adenopathy. Marrow Signal: Normal marrow signal and enhancement without focal lesion identified. IMPRESSION: No discrete focus of abnormal signal intensity is identified to suggest clinically significant prostate carcinoma. PI-RADS 2: Low (clinically significant cancer is unlikely to be present) PI-RADS Assessment Categories PI-RADS 1: Very low (clinically significant cancer is highly unlikely to be present) PI-RADS 2: Low (clinically significant cancer is unlikely to be present) PI-RADS 3: Intermediate (the presence of clinically significant cancer is equivocal) PI-RADS 4: High (clinically significant cancer is likely to be present) PI-RADS 5: Very high (clinically significant cancer is highly likely to be present) Prostate Biopsy---Collected: 10/06/24 [facility] Re[facility]: 10/06/24 Diagnosis A: Left base lateral: High-grade prostatic intraepithelial neoplasia. B: Left base medial: Benign prostatic tissue. C: Left mid lateral: Atypical small acinar proliferation suspicious for adenocarcinoma, and high- grade prostatic intraepithelial neoplasia. D: Left mid medial: Benign prostatic tissue. E: Left apex lateral: Benign prostatic tissue. F: Left apex medial: Benign prostatic tissue. G: Right base lateral: Benign prostatic tissue. H: Right base medial: Focal atypical glands. I: Right mid lateral: Benign prostatic tissue. J: Right mid medial: Benign prostatic tissue. K: Right apex lateral: Benign prostatic tissue. L: Right apex medial: Focal atypical glands. Clinical History Elevated PSA Assessment & Plan Assessment & Plan (1) Elevated PSA: Code(s): R97.20 - Elevated prostate specific antigen [PSA] Category: Medical (2) Atypical small acinar proliferation of prostate: Code(s): N42.32 - Atypical small acinar proliferation of prostate Category: Medical (3) Erectile dysfunction: Code(s): N52.9 - Male erectile dysfunction, unspecified Category: Medical Plan We will resume the tadalafil 5 mg daily. Continue Proscar 5 mg daily follow-up in 9 months, repeat PSA at that time. Orders: Orders AMB Urinalysis Automated Today Z13.9 - Encounter for screening, unspecified Medications: Refilled tadalafil (Cialis) [id number] [facility] [id number] Member [id number] 5 mg PO DAILY 30 tabs 7RF finasteride (Proscar) 5 mg PO DAILY 90 tabs 3RF enlarged prostate Patient Instructions: The patient had an opportunity to ask questions regarding treatment plan. The patient expressed understanding and agreement with the above treatment plan. The patient is aware they should contact our office by phone for worsening of their current condition or the appearance of new symptoms. Compliance is encouraged with any medications and followup testing that is ordered. It is a privilege to be allowed the opportunity to participate in the urologic care of your patient. If you have any questions or concerns regarding treatment for the above conditions please do not hesitate to contact me. The office telephone contact is [phone]. This note is constructed in part using voice recognition software. While every effort has been made to ensure accuracy waitstaff captain errors may have been included. Yours sincerely, Kim Jacobo MD Coding Level of Care Code Est Pt Level 4 (57808) Diagnoses Elevated PSA R97.20 Atypical small acinar proliferation of prostate N42.32 Erectile dysfunction N52.9
--- OUTSIDE RECORDS SUMMARY | 2025-06-04 14:12 | XMS_ITS | Encounter Summary ---
Author Organization [employer] Address [address] [place] [address] Care Team Providers Care Fine Arts Chair Name Role Phone Karla Manjarrez MD Primary Care Provider [phone] Reason for Visit * Reason Onset Date Comments Med Refill 03/26/2025 Encounter Details Date Type Department Care Team (Late st Contact Info) Description 03/26/2025 Telephone [facility] MEDICINE [address] [place] [address] Karla Manjarrez MD [address] [place] [address] Med Refill Social History Tobacco Use Types [...] 7.5-325 MG tablet To be sent to: [facility] - [place], [place] - [address] [place] [address] documented in this encounter Plan of Treatment Upcoming Encounters Date Type Department Care Team (Late st Contact Info) Description 06/22/2025 11:00 AM EDT Office Visit [facility] MEDICINE [address] [place] [address] documented as of this encounter Visit Diagnoses Not on filedocumented in this encounter Additional Health Concerns Assessment Noted Time PHQ-9 Depression Total Score: 11 024 1:26 PM EDT documented as of this encounter Care Teams Fine Arts Chair Relationship Specialty Start Date End Date Karla Manjarrez MD [address] [place] [address] PCP - General Family Medicine 09/23/20 Justine Cyr NP Psychiatrist 02/21/24 Kim Jacobo MD [address] [place] [address] [place] [address] Surgeon Urology 08/10/24 documented as of this encounter
== END 2025-06-04 15:07 | disposition home or self-care (01) ==
LOC: HO.HUSH 14:10
PROVIDERS: PCP Family Medicine; Visit Provider Urology
DX: R97.20 Elevated prostate specific antigen [PSA] (principal); N42.32 Atypical small acinar proliferation of prostate; N52.9 Male erectile dysfunction, unspecified; Z13.9 Encounter for screening, unspecified
CPT/HCPCS: 99214

== ENCOUNTER → 2025-06-04 14:09 | Outpatient (BNVA) | payer OTHER, SELFPAY | PROVIDERS: PCP Family Medicine; Visit Provider Urology | DX: R97.20 Elevated prostate specific antigen [PSA] (principal); N42.32 Atypical small acinar proliferation of prostate; N52.9 Male erectile dysfunction, unspecified | CPT/HCPCS: 81003; 99212 ==

== ENCOUNTER 2025-07-11 17:20 | Emergency (ER) | payer OTHER, SELFPAY ==
--- NOTE | ~2025-07-11 | XR_ITS ---
CLINICAL HISTORY: pain after walking long distance 6 view bilateral ankles Comparison: None provided Findings: No acute fractures. Ankle mortise intact. No significant arthritic change or erosions. Bilateral calcaneal enthesophytes. No ankle effusion. IMPRESSION: 1. No acute findings. This document has been electronically signed by: Renee Graf MD on 07/11/2025 18:57:22
--- NOTE | ~2025-07-11 | XR_ITS ---
CLINICAL HISTORY: pain after walking long distance 6 view bilateral feet Comparison: None provided Findings: No fractures or dislocations. No significant arthritic change or erosions. Bilateral calcaneal enthesophytes. No ankle effusion. IMPRESSION: 1. No acute findings. This document has been electronically signed by: Renee Graf MD on 07/11/2025 18:59:05
--- NOTE | 2025-07-11 17:29 | ED_ITS ---
HPI - General Adult General Chief complaint: Extremity Injury, Lower Stated complaint: bilateral leg pain Time Seen by Provider: 07/11/25 20:02 Source: patient Limitations: no limitations History of Present Illness ED Provider: Deborah Johnson PA-C HPI narrative: 55M with a past medical history significant for chronic pain on daily oxycodone and baclofen, sciatica, and lumbosacral radiculopathy. Patient reports bilateral ankle pain with associated subjective edema x3 weeks, worse after activity, better with rest. Reporting severe heel pain x1 week, also worse with activity. Denies redness or warmth of the joint or inability to ambulate. No fever. Onset (ago): week(s) Related Data Home Medications ?Medication ?Instructions ?Recorded ?Confirmed aripiprazole 2 mg tablet (Abilify) 2 mg PO DAILY 11/1306/04/25 oxycodone-acetaminophen 7.5 mg-325 1 tab PO Q8H PRN Pa in 01/11/22 06/04/25 mg tablet baclofen 10 mg tablet 10 mg PO BID 12/30/23 aripiprazole 5 mg tablet 5 mg PO DAILY 10/30/2406/04 Previous Rx's ?Medication ?Instructions ?Recorded sulfamethoxazole 800 1 tab PO BID #20 tabs mg-trimethoprim 160 mg tablet (Bactrim DS) diazepam 5 mg tablet (Valium) 5 mg PO .dose #1 tab finasteride 5 mg tablet (Proscar) 5 mg PO DAILY enlarg ed prostate 06/04/25 #90 tabs tadalafil 5 mg tablet (Cialis) 5 mg PO DAILY #30 tabs 06/04/25 ketorolac 10 mg tablet 10 mg PO Q6H PRN pain #20 ta bs 07/11/25 methylprednisolone 4 mg tablets in 4 mg PO QAM #21 ea 07/11/25 a dose pack (Medrol (Franklin)) Allergies Allergy/AdvReac Type Severity Reaction Status Date / Time shellfish derived (shellfish) Allergy Severe Itchy Verified 07/11/25 17:31 throat benzocaine (From Allergy Intermediate irritated Verified 07/11/25 17:31 Chloraseptic) throat menthol (From Chloraseptic) Allergy Intermediate irritated Verified 07/11/25 17:31 throat From Chloraseptic Allergy Intermediate irritated Uncoded 07/11/25 17:31 throat Review of Systems Review of Systems: Yes all other systems are reviewed and are negative Constitutional: Constitutional: Denies fatigue and Denies fever(s) Cardiovascular: Cardiovascular: Denies chest pain and Denies dyspnea Respiratory: Respiratory: Denies dyspnea Musculoskeletal: Musculoskeletal: Denies deformity, Reports arthralgias, Reports joint swelling, Reports muscle cramps and Denies numbness Neurologic: Denies numbness Endocrine: Endocrine: Denies fatigue PMFSH Past Medical History Attestation statement: The following information was validated with the patient. Medical History Back pain Hypogonadism in male Surgical History Hx of colonoscopy Hx of circumcision Hx of appendectomy Family History Family History Mother Diabetes Maternal Grandmother Diabetes Maternal Aunt Diabetes Cancer Maternal Aunt Diabetes Social History Social History Household Members: Spouse Household Members Other:: Housing: Apartment Are you a primary spiritual care coordinator to a significant other at home: No Do you presently have visiting nurse or other home services: No Alcohol intake: former Patient Tobacco Use Status: Former Tobacco user Tobacco use type: Cigarette Smoked in Last 30 Days: No Use of substances other than those prescribed or required for medical reasons: Yes Substance Use Type: Marijuana Substance Use Frequency: Weekly Advance Directives: No Advance Directives Information Provided: Yes Do you have a plan to hurt others: No Plan Current occupational status: disabled Physical Exam ED Vital Signs: Vital Signs - 24 hr 07/11/25 17:31 07/11/25 20:38 07/11/25 20:50 Temperature 97.5 F 98 F 98 F Pulse Rate 107 H 69 69 Respiratory Rate 15 16 16 Blood Pressure 121/68 116/76 116/76 Pulse Oximetry 96 98 98 Oxygen Delivery Method Room Air Room Air Room Air BMI result Body Mass Index 32.9 Const General: healthy appearing and anxious; No comfortable Nutritional Appearance: well nourished Orientation/consciousness: patient oriented x3 Resp Effort & Inspection: normal respiratory effort Auscultation: clear to auscultation bilaterally Cardio Rate: regular rate Rhythm: regular rhythm Peripheral pulses: Peripheral pulses 2+ throughout Skin Other: Warm well perfused. No edema on exam. Neuro General: patient oriented x3, gait normal, no focal motor deficits and CN's II- XI intact bilaterally Extrem Other: increased pain with dorsi and plantar flexion , there is no objective swelling there was no warmth there was no erythema noted over bilateral ankles and feet full flexion and extension, although pain with range of motion, the patient is ambulatory General: Yes no calf tenderness Psych Other: Cooperative Course Course Course Narrative: Lissette Pichardo PARACHUTE ACCESSORIES ATTACHER 07/11 1730 This is a rapid medical exam. Defer additional HPI, ROS and PE to primary provider. 55yo male here with bilateral posterior ankle/heel pain after walking a long distance 2-3 weeks ago. Now pain when he is walking. Will obtain x-rays VSS Reevaluation(s) Reevaluation #1: I Deborah Johnson PA-C have personally performed history, physical and assessment, Toshia MCCLURE, helped to formulate the documentation. Medications Administered Discontinued Medications Generic Name Dose Route Start Last Admin Trade Name Freq PRN Reason Stop Dose Admin Ketorolac Tromethamine 15 mg 07/11/25 20:36 07/11/25 20:44 Ketorolac Tromethamine 15 Mg/Ml Vial IM 07/11/25 20:37 15 mg ONCE ONE Administration Prednisone 10 mg 07/11/25 20:36 07/11/25 20:44 Prednisone 10 Mg Tablet PO 07/11/25 20:37 10 mg ONCE ONE Administration Medical Decision Making Medical Decision Making [facility] Narrative: 55M with a past medical history significant for chronic pain on daily oxycodone and baclofen, sciatica, and lumbosacral radiculopathy. Patient reports bilateral ankle pain with associated subjective edema x3 weeks, worse after activity, better with rest. Reporting severe heel pain x1 week, also worse with activity. Denies redness or warmth of the joint or inability to ambulate. No fever. Problem: Chronic pain History: Per patient I have considered the following differential diagnoses: Fracture, dislocation, sprain, contusion, septic joint, gout Plan: X-rays were ordered from triage, No fractures or dislocations on xrays of bilat ankle and foot. No significant arthritic changes or erosions. Bilateral heel spurs show which may explain his heel pain. PO prednisone and IM toradol for pain management. Patient states last oxycodone dose was 1 day ago. States he is prescribed 7.5mg oxycodone but has been taking 1.5 instead of 1 pill due to increased pain for the past 3 weeks. 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 Differential Diagnosis Differential Diagnoses: The differential diagnosis associated with the presentation includes I considered ankle fractures/dislocations. No structural abnormalities presents besides bilat heel spurs which help explain patients bilat heel pain. Also considered ankle sprain, septic joint, gout. Unlikely due to no erythema, edema, or ecchymosis on exam. Admission/Observation Consideration of admission/observation: Escalation of care including admission/observation considered Not applicable Radiology Impression Discussion of test interpretation with radiology: I have reviewed the radiologist's reading. Radiologist Impression: No acute findings. Discharge Plan Discharge Clinical Impression: Osteoarthritis Heel spur Qualifiers: Laterality: unspecified laterality Qualified Code(s): M77.30 - Calcaneal spur, unspecified foot Patient Disposition: Home, Self-Care Instructions: Osteoarthritis (ED), Heel Spur (ED) Additional Instructions: The x-rays of bilateral ankles and feet revealed that you have heel spurs and arthritis. See home care instructions. You need to wear an appropriate shoe that helps to support the foot and the arch of the foot. Sneakers are a great choice. Take the ketorolac as directed this is an anti-inflammatory take it with food. Use the steroid taper this is a 2nd anti-inflammatory, take it with food. I see that you are prescribed opiate pain medication on a regular basis. You last filled a prescription on June 21, it appears that you have plenty of medication until the beginning of July. I am sending you with a contact for a local elastic assembler, this is a foot doctor, you can call to schedule an ap pointment to have discussion about interventions that would be appropriate to manage your heel and foot pain. Prescriptions: New ketorolac 10 mg tablet 10 mg PO Q6H PRN (Reason: pain) Qty: 20 0RF Rx Instructions: maximum total duration of 5 days from all oral, intranasal, or parenteral formulations. The patient received an intramuscular dose of Toradol here in the emergency room. methylprednisolone [Medrol (Franklin)] 4 mg tablets,dose pack 4 mg PO QAM Qty: 21 0RF Rx Instructions: Take per package instructions No Action diazepam [Valium] 5 mg tablet 5 mg PO .dose Qty: 1 0RF Rx Instructions: Take 30 minutes prior to MRI procedure aripiprazole [Abilify] 2 mg tablet 2 mg PO DAILY oxycodone-acetaminophen 7.5-325 mg tablet 1 tab PO Q8H PRN (Reason: Pain) baclofen 10 mg tablet 10 mg PO BID aripiprazole 5 mg tablet 5 mg PO DAILY sulfamethoxazole-trimethoprim [Bactrim DS] 800-160 mg tablet 1 tab PO BID Qty: 20 0RF finasteride [Proscar] 5 mg tablet 5 mg PO DAILY Qty: 90 3RF tadalafil [Cialis] 5 mg tablet 5 mg PO DAILY Qty: 30 7RF Rx Instructions: [id number] [facility] [id number] Member [id number] Referrals: Najma Dunbar DPM [Physician, Podiatry] Referral Note: heel spurs/osteoarthritis Interventions: ED Discharge Assessment Last Done: 07/11/25 20:50 Discharge Date/Time: 07/11/25 20:50 Print Language: Persian
[2025-07-11 17:31] VITALS: BP 121/68; PULSE 107; RESP 15; TEMP 36.4; O2SAT 96; BMI 32.9
--- OUTSIDE RECORDS SUMMARY | 2025-07-11 18:07 | XMS_ITS | Encounter Summary ---
Author Organization [employer] Address [address] [place] [address] Care Team Providers Care Brief Writer Name Role Phone Karla Manjarrez MD Primary Care Provider [phone] Reason for Visit * Reason Onset Date Comments Med Refill 09/02/2024 Encounter Details Date Type Department Care Team ([facility] st Contact Info) Description 09/02/2024 Telephone [facility] [address] [place] [address] Karla Manjarrez MD [address] [place] [address] Med Refill Social History Tobacco Use Types [...] encounter Miscellaneous Notes * Telephone Encounter - Danny Franklin - 09/02/2024 10:11 AM EST TC from pt requesting medication refill. Medications needing refill : oxyCODONE-acetaminophen (Percocet) 7.5-325 MG tablet To be sent to: [facility] - [place], [place] - [address] [place] [address] documented in this encounter Plan of Treatment Upcoming Encounters Date Type Department Care Team (Late st Contact Info) Description 08/24/2025 11:00 AM EST Office Visit [facility] [address] [place] [address] documented as of this encounter Visit Diagnoses Not on filedocumented in this encounter Additional Health Concerns Assessment Noted Time PHQ-9 Depression Total Score: 11 024 1:26 PM EDT documented as of this encounter Care Teams Brief Writer Relationship Specialty Start Date End Date Karla Mnajarrez MD [address] [place] [address] PCP - General Family Medicine 09/23/20 Justine Cyr NP Psychiatrist 02/21/24 Kim Jacobo MD [address] [place] [address] [place] [address] Surgeon Urology 08/10/24 documented as of this encounter
--- OUTSIDE RECORDS SUMMARY | 2025-07-11 18:07 | XMS_ITS | Encounter Summary ---
Author Organization [employer] Address [address] [place] [address] Care Team Providers Care Supervisor Drying Name Role Phone Karla Manjarrez MD Primary Care Provider [phone] Reason for Visit * Reason Onset Date Comments Med Refill 05/31/2025 Encounter Details Date Type Department Care Team (Late st Contact Info) Description 05/31/2025 Telephone [facility] [address] [place] [address] Karla Manjarrez MD [address] [place] [address] Med Refill Social History Tobacco Use Types [...] encounter Miscellaneous Notes * Telephone Encounter - Kiki Shirley LPN - 05/31/2025 10:25 AM EDT Medication was sent to [facility] on 04/14/25 with 2 refills. * Telephone Encounter - Delfina Flores - 05/31/2025 9:51 AM EDT TC from pt requesting medication refill. Medications needing refill : - baclofen (Lioresal) 10 MG tablet To be sent to: - [facility] - [place], [place] - [address] [place] [address] documented in this encounter Plan of Treatment Upcoming Encounters Date Type Department Care Team (Late st Contact Info) Description 08/24/2025 11:00 AM EST Office Visit [facility] [address] [place] [address] documented as of this encounter Visit Diagnoses Not on filedocumented in this encounter Additional Health Concerns Assessment Noted Time PHQ-9 Depression Total Score: 11 024 1:26 PM EDT documented as of this encounter Care Teams Supervisor Drying Relationship Specialty Start Date End Date Karla Manjarrez MD [address] [place] [address] PCP - General Family Medicine 09/23/20 Justine Cyr NP Psychiatrist 02/21/24 Kim Jacobo MD [address] [place] [address] [place], [place] [address] Surgeon Urology 08/10/24 documented as of this encounter
--- OUTSIDE RECORDS SUMMARY | 2025-07-11 18:07 | XMS_ITS | Encounter Summary ---
Author Organization [employer] Address [address] [facility] [address] [place] [address] Care Team Providers Care Jewel Sawyer Name Role Phone Karla Manjarrez MD Primary Care Provider [phone] Reason for Visit * Reason Onset Date Comments Med Refill 11/27/2024 Encounter Details Date Type Department Care Team (Late st Contact Info) Description 11/27/2024 Telephone [facility] [address] [place] [address] Karla Manjarrez MD [address] [place] [address] Med Refill Social History Tobacco Use Types [...] encounter Miscellaneous Notes * Telephone Encounter - Poli Durbin - 11/27/2024 4:10 PM EST TC from pt requesting medication refill. Medications needing refill : baclofen (Lioresal) 10 MG tablet To be sent to: [facility]/pharmacy #[id number] [place] [address] - [address] [place] [address] documented in this encounter Plan of Treatment Upcoming Encounters Date Type Department Care Team (Late st Contact Info) Description 08/24/2025 11:00 AM EST Office Visit [facility] [address] [place] [address] documented as of this encounter Visit Diagnoses Not on filedocumented in this encounter Additional Health Concerns Assessment Noted Time PHQ-9 Depression Total Score: 11 024 1:26 PM EDT documented as of this encounter Care Teams Jewel Sawyer Relationship Specialty Start Date End Date Karla Manjarrez MD [address] [place] [address] PCP - General Family Medicine 09/23/20 Justine Cyr NP Psychiatrist 02/21/24 Kim Jacobo MD [address] [place] [address] [place] [address] Surgeon Urology 08/10/24 documented as of this encounter
--- OUTSIDE RECORDS SUMMARY | 2025-07-11 18:07 | XMS_ITS | Encounter Summary ---
Author Organization [employer] Address [address] [facility] [address] [place] [address] Care Team Providers Care Chore Tender Name Role Phone Karla Manjarrez MD Primary Care Provider [phone] Reason for Visit * Reason Onset Date Comments Med Refill 03/26/2025 Encounter Details Date Type Department Care Team (Late st Contact Info) Description 03/26/2025 Telephone [facility]INE [address] [place] [address] Karla Manjarrez MD [address] [place] [address] Med Refill Social History Tobacco Use Types [...] 7.5-325 MG tablet To be sent to: [facility] - [place], [place] - [address] [place] [address] documented in this encounter Plan of Treatment Upcoming Encounters Date Type Department Care Team (Late st Contact Info) Description 08/24/2025 11:00 AM EST Office Visit [facility] [address] [place] [address] documented as of this encounter Visit Diagnoses Not on filedocumented in this encounter Additional Health Concerns Assessment Noted Time PHQ-9 Depression Total Score: 11 024 1:26 PM EDT documented as of this encounter Care Teams Chore Tender Relationship Specialty Start Date End Date Karla Manjarrez MD [address] [place] [address] PCP - General Family Medicine 09/23/20 Justine Cyr NP Psychiatrist 02/21/24 Kim Jacobo MD [address] [place] [address] [place] [address] Surgeon Urology 08/10/24 documented as of this encounter
--- OUTSIDE RECORDS SUMMARY | 2025-07-11 18:07 | XMS_ITS | Encounter Summary ---
Author Organization [employer] Address [address] [facility] 7t [place] [address] Care Team Providers Care Flying Teacher Name Role Phone Karla Manjarrez MD Primary Care Provider [phone] Reason for Visit * Reason Onset Date Comments Appointment Request 02/20/2023 Encounter Details Date Type Department Care Team ([facility] st Contact Info) Description 02/20/2023 Telephone [facility] [address] [place], [place] [phone] Karla Manjarrez MD [address] [place] [address] Appointment Request Social History Tobacco Use Types Packs/Day Years Used Date Smoking Tobacco: Former Cigarettes 0.5 3 Depression Answer Date Recorded Patient Health Questionnaire-9 Score 6 12/11/2022 Depression Answer Date Recorded Patient Health Questionnaire-2 Score 1 12/11/2022 Sex and Gender Information Value Date Recorded Sex Assigned at Male 08/13/2022 10:16 AM EDT Legal Sex Male 10:16 AM EDT Gender Identity Male 08/13/2022 10:16 AM EDT Sexual Orientation Choose not to disclose 2021 10:16 AM EDT COVID-19 Exposure Response Date Recorded In the last 10 days, have yo u been in contact with someone who was confirmed or suspected to have Coronavirus/COVID-19? No / Unsure 01/23/2023 2:49 PM EDT documented as of this encounter Miscellaneous Notes * Telephone Encounter - Pravin Monet Erlin - 02/20/2023 2:47 PM EDT Tc from pt requesting to r/s appt of [facility] on 02/20/2023 Please contact pt at [phone] Welsh Speaker documented in this encounter Plan of Treatment Upcoming Encounters Date Type Department Care Team (Late st Contact Info) Description 08/24/2025 11:00 AM EST Office Visit [facility] [address] [place] [address] documented as of this encounter Visit Diagnoses Not on filedocumented in this encounter Additional Health Concerns Assessment Noted Time PHQ-9 Depression Total Score: 6 12/11/19 23 3:13 PM EST documented as of this encounter Care Teams Flying Teacher Relationship Specialty Start Date End Date Karla Manjarrez MD [address] [place] [address] PCP - General Family Medicine 09/23/20 Justine Cyr NP Psychiatrist 02/21/24 Kim Jacobo MD [address] [place] [address] [place] [address] Surgeon Urology 08/10/24 documented as of this encounter
--- OUTSIDE RECORDS SUMMARY | 2025-07-11 18:07 | XMS_ITS | Encounter Summary ---
Author Organization [employer] Address [address] [facility] [facility] [address] [place] [address] Care Team Providers Care Rail Transportation Tabeler Name Role Phone Karla Manjarrez MD Primary Care Provider [phone] Encounter Details Date Type Department Care Team (Late st Contact Info) Description 02/14/2024 Orders Only [facility]INE [address] [place] [address] Provider, MD Sasha Social History Tobacco Use Types Packs/Day Years Used Date Smoking Tobacco: Former Cigarettes 0.5 3 Depression Answer Date Recorded Patient Health Questionnaire-9 Score 6 12/11/2022 Housing Stability Answer Date Recorded What is your housing situation today? I have song shahnaz 02/03/[address] you li [...] 08/24/2025 11:00 AM EST Office Visit [facility] [address] [place] [address] documented as of this encounter Procedures Procedure Name Priority Date/Time Associated Diagnosis Comments HM COLONOSCOPY Routine 12/12/2021 7:44 AM EST documented in this encounter Results * Hm Colonoscopy (12/12/2021 7:44 AM EST) us Historical Provider HEALTH MAINTENANCE Final Result documented in this encounter Visit Diagnoses Not on filedocumented in this encounter Additional Health Concerns Assessment Noted Time PHQ-9 Depression Total Score: 6 12/11/19 23 3:13 PM EST documented as of this encounter Care Teams Rail Transportation Tabeler Relationship Specialty Start Date End Date Karla Manjarrez MD [address] [place] [address] PCP - General Family Medicine 09/23/20 Justine Cyr, DRIER AND GRINDER TENDER Psychiatrist 02/21/24 Kim Jacobo MD [address] [place] [address] [place] [address] Surgeon Urology 08/10/24 documented as of this encounter
--- OUTSIDE RECORDS SUMMARY | 2025-07-11 18:07 | XMS_ITS | Encounter Summary ---
Author Organization [employer] Address [address] [address] [facility] [address] [place] [address] Care Team Providers Care Health And Safety Representative Name Role Phone Karla Manjarrez MD Primary Care Provider [phone] Encounter Details Date Type Department Care Team (Late st Contact Info) Description 08/29/2023 Abstract [facility] [address] [place], [place] [id number] Isabella Menon Social History Tobacco Use Types Packs/Day Years Used Date Smoking Tobacco: Former Cigarettes 0.5 3 Depression Answer Date Recorded Patient Health Questionnaire-9 Score 6 12/11/2022 Housing Stability Answer Date Recorded What is your housing situation today? I have songelian christie 08/16/[address] you li ve. Do you have problems with any of the following? None of the above 08/16/2023 Food Insecurity Answer Date Recorded Within the past 12 months, y ou worried that your food would run out before you got money to buy more: Never True 08/16/2023 Within the past 12 months,th e food you bought just didn't last and you didn't have enough money to get more: Never True 12/2022 Transportation Answer Date Recorded In the past 12 months, has l ack of transportation kept you from medical appts, meetings, work or from getting things needed for daily living? No 08/16/2023 Utilities Answer Date Recorded In the past 12 months, has t he electric, gas, oil or water company threatened to shut off services in your home? No 08/16/2023 Depression Answer Date Recorded Patient Health Questionnaire-2 [...] Description 08/24/2025 11:00 AM EST Office Visit [facility] [address] [place] [address] documented as of this encounter Visit Diagnoses Not on filedocumented in this encounter Additional Health Concerns Assessment Noted Time PHQ-9 Depression Total Score: 6 12/11/19 23 3:13 PM EST documented as of this encounter Care Teams Health And Safety Representative Relationship Specialty Start Date End Date Karla Manjarrez MD [address] [place] [address] PCP - General Family Medicine 09/23/20 Justine Cyr NP Psychiatrist 02/21/24 Kim Jacobo MD [address] [place] [address] [place] [address] Surgeon Urology 08/10/24 documented as of this encounter
--- OUTSIDE RECORDS SUMMARY | 2025-07-11 18:07 | XMS_ITS | Encounter Summary ---
Author Organization [employer] Address [address] [place] [address] Care Team Providers Care Motor Block Mechanic Name Role Phone Karla Manjarrez MD Primary Care Provider [phone] Reason for Visit * Reason Comments Med Refill Encounter Details Date Type Department Care Team ([facility] Contact Info) Description 04/06/2024 Refill [facility] [address] [place], [place] [phone] Karla Manjarrez MD [address] [place], [place] [phone] Chronic low back pain with bilateral sciatica, [...] t he electric, gas, oil or water [employer] threatened to shut off services in your [...] 08/24/2025 11:00 AM EST Office Visit [facility] [address] [place] [address] documented as of this encounter Visit Diagnoses Diagnosis Chronic low back pain with bilateral sciatica, unspecified back pain laterality documented in this encounter Additional Health Concerns Assessment Noted Time PHQ-9 Depression Total Score: 6 12/11/19 23 3:13 PM EST documented as of this encounter Care Teams Motor Block Mechanic Relationship Specialty Start Date End Date Karla Manjarrez MD [address] [place] [id number] PCP - General Family Medicine 09/23/20 Justine Cyr NP Psychiatrist 02/21/24 Kim Jacobo MD [address] [place] [address] [place] [address] Surgeon Urology 08/10/24 documented as of this encounter
--- OUTSIDE RECORDS SUMMARY | 2025-07-11 18:07 | XMS_ITS | Encounter Summary ---
Author Organization [employer] Address [address] [facility] [address] [place] [address] Care Team Providers Care Prints And Drawings Curator Name Role Phone Karla Manjarrez MD Primary Care Provider Reason for Visit * Reason Onset Date Comments Med Refill 02/23/2025 Encounter Details Date Type Department Care Team ([facility] st Contact Info) Description 02/23/2025 Refill [facility] [address] [place], [place] [phone] Mary Peña MD [address] [place] [address] Chronic low back pain with bilateral sciatica, [...] Description 08/24/2025 11:00 AM EST Office Visit [facility] [address] [place] [address] documented as of this encounter Visit Diagnoses Diagnosis Chronic low back pain with bilateral sciatica, unspecified back pain laterality documented in this encounter Additional Health Concerns Assessment Noted Time PHQ-9 Depression Total Score: 11 024 1:26 PM EDT documented as of this encounter Care Teams Prints And Drawings Curator Relationship Specialty Start Date End Date Karla Manjarrez MD [address] [place] [phone] PCP - General Family Medicine 09/23/20 Justine Cyr, JORGE Psychiatrist 02/21/24 Kim Jacobo MD [address] [place] [address] [place] [address] Surgeon Urology 08/10/24 documented as of this encounter
--- OUTSIDE RECORDS SUMMARY | 2025-07-11 18:07 | XMS_ITS | Encounter Summary ---
Author Organization [employer] [facility] Address [address] [facility] 7[address] [place] [address] Care Team Providers Care Repeater Chief Name Role Phone Karla Manjarrez MD Primary Care Provider [phone] Encounter Details Date Type Department Care Team (Late st Contact Info) Description 09/05/2022 Abstract [facility] [address] [place] [phone] Provider, MD Sasha Social History Tobacco Use Types Packs/Day Years Used Date Smoking Tobacco: Never Assessed Sex and Gender Information Value Date Recorded [...] Description 08/24/2025 11:00 AM EST Office Visit [address] [address] documented as of this encounter Visit Diagnoses Not on filedocumented in this encounter Care Teams Repeater Chief Relationship Specialty Start Date End Date Karla Manjarrez MD [address] [place] [address] PCP - General Family Medicine 09/23/20 Justine Cyr NP Psychiatrist 02/21/24 Kim Jacobo MD [address] [place] [address] [place] [address] Surgeon Urology 08/10/24 documented as of this encounter
--- OUTSIDE RECORDS SUMMARY | 2025-07-11 18:07 | XMS_ITS | Clinical Summary ---
Author Organization [employer] Address [address] [place] [address] Care Team Providers Care Utility Operator Yarn Name Role Phone Karla Manjarrez MD Primary Care Provider [phone] Allergies No known active allergies Medications * This document contains information received from the source organization and may not represent a complete record from that organization. ammonium lactate (Amlactin) 12 % cream Apply 1 application topically in the morning and at bedtime. 11/04/19 21 Active Diclofenac Sodium 1 % gel Apply 2 g topically every 6 (six) hours. 07/06/20 22 Active naloxone (Narcan) 4 mg/0.1 mL nasal spray Administer 0.1 mL into affected nostril(s) if needed. 05/19/20 21 Active Testosterone 20.25 MG/1.25GM (1.62%) gelIndications :Hypogonadism in male APPLY 1 PACKET TO SKIN EVERY MORNING 37.5 g 5 02/05/20 24 Active bisacodyl (Bisacodyl EC) 5 MG EC tablet Take 2 tablets (10 mg) by mouth if needed each day for constipation. Do not crush, chew, or split. 60 tablet 5 02/21/20 24 Active tadalafil (Cialis) 5 MG tablet TAKE 1 TABLET BY MOUTH ONCE DAILY DIRECTED 07/19/20 24 Active ARIPiprazole (Abilify) 2 MG tablet Take 1 tablet (2 mg) by mouth Once per day. 90 tablet 08/10/20 24 Active cloNIDine (Catapres) 0.1 MG tablet Take 1 tablet (0.1 mg) by mouth at bedtime. 90 tablet 08/10/20 24 Active cetirizine (ZyrTEC) 10 MG tablet Take 1 tablet (10 mg) by mouth Once per day. 90 tablet 1 08/10/20 24 Active diclofenac (Cataflam) 50 MG tablet TAKE 1 TABLET BY MOUTH THREE TIMES DAILY 90 tablet 10/28/19 25 Active baclofen (Lioresal) 10 MG tabletIndicati ons:Sciatica, right side TAKE 1 TABLET BY MOUTH TWICE A DAY 60 tablet 2 04/14/20 25 Active oxyCODONE-acet aminophen (Percocet) 7.5-325 MG tabletIndicati ons:Chronic low back pain with bilateral sciatica, unspecified back pain laterality Take 1 tablet by mouth every 8 (eight) hours. 84 tablet 06/21/20 25 Active oxyCODONE-acet aminophen (Percocet) 7.5-325 MG tabletIndicati ons:Chronic low back pain with bilateral sciatica, unspecified back pain laterality Take 1 tablet by mouth every 8 (eight) hours. 84 tablet 05/24/20 25 025 Discontinued(R eorder (will not trigger notification to Pharmacy)) Active Problems Problem Noted Date Diagnosed Date Long-term current use of opiate analgesic 2024 Overview (04/20/2025): Medication: Percocet 7.5/325mg TID Indication: chronic back pain Last VALVER Agreement: 04/20/25 Tier 2: q3mo poultry offal icer (reviewed by PCP 04/13/25) Assessment & Plan (06/22/2025 1:38 PM EDT): Timeline: - 01/05/25: Initial group visit - utox/pill count as expected - 02/23/25: Group visit - utox/pill count as expected - 04/20/25: Group visit - pill count 3 short, utox pos Temazepam (Agreement, BPI) - 06/22/25: Group - utox and pill count as expected Assessment & Plan (04/20/2025 7:46 PM EDT): Timeline: - 01/05/25: Initial group visit - utox/pill count as expected - 02/23/25: Group visit - utox/pill count as expected - 04/20/25: Group visit - pill count 3 short, utox not as expected. 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 Patient has been on testosterone for years, hypogonadism likely in the setting of nursing home opiate use. Assessment & Plan (10/11/2023 3:56 PM EST): Patient that requested to get retested for Testosterone will be sent for labs. In addition, patient will be referred to Urology. Assessment & Plan (06/20/2023 5:23 PM EDT): Likely secondary to chronic use of opiates for pain control. Will send testosterone levels and f/up results. He had been on topical testosterone for years, he was declined by insurance will redo workup to demonstrate need. Class 1 obesity due to exces s calories with serious comorbidity and body mass index (BMI) of 31.0 to 31.9 in adult 12/11/2022 Assessment & Plan (10/11/2023 3:24 PM EST): Discussed calorie deficit, recommended reduction of 20-30% of maintenance calories; tug boat engineer referral offered. Recommended to decrease soda and sugary beverage consumption. Recommended at least 20 g per meal of protein to assist with satiety. Recommended at least 150 min/week of moderate intensity exercise. Routine screening for STI (sexually transmitted infection) 12/11/2022 Assessment & Plan (10/11/2023 3:25 PM EST): Patient will be sent for labs for STD/STI testing as a routine check. Hyperlipidemia 09/13/2022 Impaired fasting glucose 04/24/2017 Chronic bilateral low back pain 08/29/2016 Assessment & Plan (06/22/2025 1:41 PM EDT): -Excellent engagement and participation with Group Medical Visit model -Encouraged multifactorial approach to pain control including pharm and non- pharm modalities -Utox/pill count as expected -Referral to Chiropractic placed Assessment & Plan (04/20/2025 7:56 PM EDT): -Excellent engagement and participation with Group Medical Visit model -Encouraged multifactorial approach to pain control including pharm and non- pharm modalities -See pullman clerk regarding utox/pill count Assessment & Plan (02/25/2025 12:17 PM EDT): -Good engagement and participation with Group Medical Visit model -Encouraged multifactorial approach to pain control including pharm and non- pharm modalities -UTOX and Pill count as expected Assessment & Plan (01/05/2025 8:48 PM EDT): -Good engagement and participation with Group Medical Visit model, today was first visit. -Encouraged multifactorial approach to pain control including pharm and non- pharm modalities -UTOX and Pill count as expected Assessment & Plan (08/10/2024 1:36 PM EDT): Med provides improvement of pain and function. Consistently following up with COT nurse. No change at this time. Using lowest effective dose. No suspected aberrant drug-taking behaviors. Followup 6 months. Assessment & Plan (06/20/2023 5:22 PM EDT): Med provides improvement of pain and function. Consistently following up with COT nurse. No change at this time. Using lowest effective dose. No suspected aberrant drug-taking behaviors. Assessment & Plan (12/11/2022 3:52 PM EST): Medications provide improvement of pain and function. < 90MME. No change in management. Using lowest effective dose. Discussed alternative pharmacological and non-pharmacological pain relief therapies. No suspected aberrant drug-taking behaviors. [facility]w [facility]. Encounters * This document contains information received from the source organization and may not represent a complete record from that organization. Date Type Department Care Team Description 06/22/2025 11:00 AM EDT Office Visit [address] [address] Phalen Candy, VIOLIN REPAIRER Chronic bilateral low back pain, unspecified whether sciatica present (Primary Dx); Dietary counseling; Exercise counseling; Long-term current use of opiate analgesic 06/22/2025 Travel 06/21/[address] [address] Karla Manjarrez MD Chronic low back pain with bilateral sciatica, unspecified back pain laterality 05/31/[address] [address] Karla Manjarrez MD Med Refill 05/24/[address] [address] Karla Manjarrez MD Chronic low back pain with bilateral sciatica, unspecified back pain laterality 04/23/2025 Refill [facility] [address] [place] [address] Karla Manjarrez MD Chronic low back pain with bilateral sciatica, unspecified back pain laterality 04/20/2025 11:00 AM EDT Office Visit [address] [address] Phalen, Candy, VIOLIN REPAIRER Chronic bilateral low back pain, unspecified whether sciatica present (Primary Dx); Long-term current use of opiate analgesic 04/20/2025 Orders Only [facility] [address] [place] [address] Phalen, Candy, VIOLIN REPAIRER 04/20/[address] [address] Ilda Rodriguez RN Abnormal UTOX; Percocet count discrepancy; BPI results; [facility]VER Agreement renewed today 04/20/2025 Travel 04/14/2025 Refill [facility] [address] [place] [phone] Karla Manjarrez MD Sciatica, right side from Last 3 Months Immunizations Immunization Administration Dates Next Due Hep B, adult 03/31/2021,06/09/2018,05/01/2018 Tdap 05/01/2018 Social History Tobacco Use Types Packs/Day Years Used Date Smoking Tobacco: Former Cigarettes 0.5 3 Tobacco Cessation:Counseling Given: Not Answered Depression Answer Date Recorded Patient Health Questionnaire-9 [...] not to disclose 2021 10:16 AM EDT Last Filed Vital Signs Vital Sign Reading Time Taken Comments Blood Pressure 103/68 06/22/2025 11:13 AM EDT Pulse 91 06/22/2025 11:13 AM EDT Temperature 36.5 C (97.7 F) 06/22/2025 11:13 AM EDT Respiratory Rate 18 06/22/2025 11:13 AM EDT Oxygen Saturation 98% 08/10/2024 1:10 PM EDT Inhaled Oxygen Concentration - - Weight 102 kg (225 lb 12.8 oz) 06/22/2025 11:13 AM EDT Height 174 cm (5' 8.5 ) 06/22/2025 11:13 AM EDT Body Mass Index 33.83 06/22/2025 11:13 AM EDT Plan of Treatment Upcoming Encounters Date Type Department Care Team (Late st Contact Info) Description 08/24/2025 11:00 AM EST Office Visit [facility] [address] [place] [address] Health Maintenance Due Date Last Done Comments CT Colonography 1970 FIT DNA/Cologuard 1970 FIT 1970 FOBT 1970 Sigmoidoscopy 1970 Disability Screening 1970 Pneumococcal Vaccine: 50+ Years (1 of 1 - PCV) 2020 Zoster Vaccines (1 of 2) 2020 SDOH Screening 02/02/2025 02/03/2024 Depression Monitoring 02/08/2025 08/10/2024, 024 COVID-19 Vaccine ( - season) 2025 Influenza Vaccine (#1) 2025 Alcohol/Substance Use Screening 08/10/2025 08/10/2024 Tobacco Screening 08/10/2025 08/10/2024 DTaP/Tdap/Td Vaccines (2 - Td or Tdap) 05/01/2028 05/01/2018 Lipid Panel 10/15/2028 10/15/2023, 12/12, 02/20/2021, Additional history exists Colonoscopy 12/13/2031 12/12/2021 Colorectal Cancer Screening 12/13/2031 RSV Patients and Patients Aged 60 years or older (1 - 1-dose 75+ series) 2045 Hepatitis B Vaccines Completed 03/31/2021, 06/09/2018, 05/01/2018 HIV Screening Completed 10/15/2023, 11/07/2020 Hepatitis C Screening Completed 10/15/2023, 021 HIB Vaccines Aged Out No longer eligi ble based on patient's age to complete this topic HPV Vaccines Aged Out No longer eligi ble based on patient's age to complete this topic Hepatitis A Vaccines Aged Out No long er eligible based on patient's age to complete this topic IPV Vaccines Aged Out No longer eligi ble based on patient's age to complete this topic Meningococcal B Vaccine Aged Out No l onger eligible based on patient's age to complete this topic Meningococcal Vaccine Aged Out No medina rosendo eligible based on patient's age to complete this topic RSV under 20 months Aged Out No longe r eligible based on patient's age to complete this topic Rotavirus Vaccines Aged Out No longer eligible based on patient's age to complete this topic Procedures Procedure Name Priority Date/Time Associated Diagnosis Comments POCT KONRAD-14 URINE DRUG SCREEN Routine 06/22/2025 11:24 AM EDT Chronic bilateral low back pain, unspecified whether sciatica present POCT KONRAD-14 URINE DRUG SCREEN Routine 04/20/2025 11:09 AM EDT Long-term current use of opiate analgesic Chronic bilateral low back pain, unspecified whether sciatica present DRUG MONITORING, BENZODIAZEPINES, QUANTITATIVE, URINE Routine 04/20/2025 11:00 AM EDT MR PROSTATE W AND WO CONTRAST Routine 04/14/2025 8:52 AM EDT HEPATITIS C AB W/REFL TO HCV RNA, QN, PCR Routine 10/15/2023 9:48 AM EST Routine screening for STI (sexually transmitted infection) HIV 1/2 ANTIGEN/ANTIBODY, FOURTH GENERATION W/RFL Routine 10/15/2023 9:48 AM EST Routine screening for STI (sexually transmitted infection) LIPID PANEL, STANDARD Routine 10/15/2023 9:48 AM EST Class 1 obesity due to excess calories with serious comorbidity and body mass index (BMI) of 31.0 to 31.9 in adult HM COLONOSCOPY Routine 12/12/2021 7:44 AM EST from Last 3 Months or Most Recently Relevant to Health Maintenance Results * (ABNORMAL) POCT KONRAD-14 Urine Drug Screen (06/22/2025 11:24 AM EDT) Only the most recent of2 resultswithin the time period is included. THC Positive Negative Cocaine Screen, Urine Negative Negative Opiate Screen, Urine Negative Negative Methamphetamine Screen Urine Negative Negative Amphetamine Screen, Urine Negative Negative Benzodiazepines Screen, Urine Negative Negative Barbiturate Screen, Urine Negative Negative Methadone Screen, Urine Negative Negative Buprenophine Screen, Urine Negative Negative TCA, Urine Negative Negative MDMA Urine Negative Negative ng/mL Oxycodone Screen, Urine Positive Negative Phencyclidine (PCP), Urine Negative Negative Propoxyphene, Urine Negative Negative Fentanyl, Urine Negative Negative Urine Urine specimen obtained by clean catch procedure / Unknown 06/22/2025 11:24 AM EDT Narrative Pam Acosta RN - 06/22/2025 11:24 AM EDT .UTOX cup Lot#[id number] Exp. 07/20/26 Internal Pass Control Candy Watts VIOLIN REPAIRER POINT OF CARE TEST ENTER/EDIT ORDERABLES Final Result * Drug Monitoring, Benzodiazepines, Quantitative, Urine (04/20/2025 11:00 AM EDT) Nordiazepam, GCMS Urine NEGATIVE [facility] Comment:[id number] ng/mL Oxazepam, GCMS Urine 61 [facility] Comment:[id number] ng/mL Lorazepam GCMS Urine NEGATIVE [facility] Comment:[id number] ng/mL Alprazolam, GCMS Urine NEGATIVE [facility] Comment:[id number] ng/mL Alphahydroxytriazolam, GCMS Ur NEGATIVE [facility] Comment:[id number] ng/mL Temazepam, GCMS Urine 57 [facility] Comment:[id number] ng/mL Alphahydroxymidazolam,GC MS Ur NEGATIVE [facility] Comment:[id number] ng/mL Aminoclonazepam, GCMS Urine NEGATIVE [facility] Comment:[id number] ng/mL Flurazepam Metabolite,GCMS Ur NEGATIVE [facility] Comment:[id number] ng/mL Benzodiazepines Comments SEE NOTE [facility] Comment: NOTES AND COMMENTSThis drug testing is for medical treatment only. Analysiswas performed as non-forensic testing and these resultsshould be used only by healthcare providers torender diagnosis or treatment, or to monitor progress ofmedical conditions.Benzodiazepines Notes:Temazepam, Oxazepam detected is consistent with the use ofthe drug Temazepam. Temazepam can be a prescribed drug andis also a metabolite of Diazepam.Oxazepam can be a prescribed drug and also a metabolite ofDiazepam, Chlordiazepoxide, Clorazepate and Temazepam.Oxazepam detected is consistent with the use of the drugOxazepam. Oxazepam can be a prescribed drug and is also ametabolite of Diazepam,Chlordiazepoxide, Clorazepate and Temazepam.LDT Notes:Confirmation tests were developed and their analyticalperformance characteristics have been determined by [facility]. It has not been cleared orapproved by the FDA. This assay has been validated pursuantto the CLIA regulations and is used for clinical purposes.Healthcare Providers needing Interpretation assistance,please contact us at [phone] ( ) M-F,8am to 10pm ESTPERFORMING SITE:[facility] [employer] [facility], [address] [place] [phone] [employer]ad [employer]ator: RUY URBAN MD, CLIA:[id number] 04/20/2025 11:0 0 AM EDT 04/20/2025 12:33 PM EDT us Candy Watts VIOLIN REPAIRER LAB URINE ORDERABLES Final Res ult [facility] [address] [place] [phone] * MR Prostate w and w/o Contrast (04/14/2025 8:52 AM EDT) Anatomical Region Laterality Modality Magnetic Resonan ce 04/14/2025 8:52 AM EDT Narrative 04/14/2025 12:14 PM EDT [address] [address] Magnetic Resonance Report Signed Patient: Kameron Fortune MR#: [id number] 89 : 1970 Acct:[id number] Age/Sex: 55 / M ADM Date: 04/14/25 Loc: HO.MRI Attending Dr: Kim Jacobo MD Ordering Physician: Kim Jacobo MD Date of Service: 04/14/25 Procedure(s): MR Prostate wo/w con Accession Number(s): [id number] cc: Kim Jacobo MD; Karla Manjarrez MD EXAMINATION: MR PROSTATE WITHOUT THEN WITH IV CONTRAST HISTORY: R97.20 - Elevated prostate specific antigen [PSA] TECHNIQUE: 1.5T body coil survey of the pelvis was performed. Phase array coil imaging of the prostate was performed in multiplanar high resolution axial, coronal, sagittal fast spin echo T2 and axial T1 weighted imaging sequences. Axial diffusion imaging at intermediate and high field performed with ADC mapping. Next, mL Gadavist was given by intravenous infusion, and dynamic axial imaging performed. COMPARISON: There are no prior studies available for comparison. CLINICAL DATA: Most recent PSA: 2.83 ng/mL on 03/23/2025. PSA Density: 0.075 ng/mL squared Prostate Biopsy: Previous biopsy on 10/06/2024 demonstrating atypical small acinar proliferation, suspicious for adenocarcinoma. FINDINGS: Prostate size: 4.8 x 4.3 x 3.5 cm. Calculated prostate volume is 37.6 mL. Hemorrhage: None. Transitional Zone: There is moderate heterogeneous nodular hypertrophy of the transitional zone. Peripheral Zone: There is diffuse mild decreased T2 signal intensity throughout the peripheral zone which can be seen in the setting of prostatitis of scarring. No focal abnormality is seen. There are no foci of restricted diffusion. Seminal Vesicles/Ejaculatory Ducts: Symmetric and normal in signal and caliber. Pelvic Lymph Nodes: No obturator or internal iliac lymph nodes meeting size criteria for adenopathy. Marrow Signal: Normal marrow signal and enhancement without focal lesion identified. MR/MR Prostate wo/w con IMPRESSION: No discrete focus of abnormal signal intensity is identified to suggest clinically significant prostate carcinoma. PI-RADS 2: Low (clinically significant cancer is unlikely to be present) PI-RADS Assessment Categories PI-RADS 1: Very low (clinically significant cancer is highly unlikely to be present) PI-RADS 2: Low (clinically significant cancer is unlikely to be present) PI-RADS 3: Intermediate (the presence of clinically significant cancer is equivocal) PI-RADS 4: High (clinically significant cancer is likely to be present) PI-RADS 5: Very high (clinically significant cancer is highly likely to be present) [employer]. MR Prostate Imaging Reporting and Data System version 2.1. [email or web address] Electronically signed by: Devon Pruett MD 04/14/2025 12:11 PM EDT RP Dictated By: Devon Pruett MD Signed By: <Electronically signed by Devon Pruett MD in OV> 04/14/25 1211 DD/ 0852 TD/TT: 04/14/25 0922 Property Supervisor: Procedure Note Donotuseinterpreter, Image - 04/14/2025 [place] [address] Magnetic Resonance Report Signed Patient: Amy Fortune#: [id number] [birth year] : 1970Acct:[id number] Age/Sex: 55 / MADM Date: 04/14/25 Loc: HO.MRI Attending Dr: Kim Jacobo MD Ordering Physician: Kim Jacobo MD Date of Service: 04/14/25 Procedure(s): MR Prostate wo/w con Accession Number(s): [id number] cc: Kim Jacobo MD; Karla Manjarrez MD EXAMINATION: MR PROSTATE WITHOUT THEN WITH IV CONTRAST HISTORY: R97.20 - Elevated prostate specific antigen [PSA] TECHNIQUE: 1.5T body coil survey of the pelvis was performed. Phase array coil imaging of the prostate was performed in multiplanar high resolution axial, coronal, sagittal fast spin echo T2 and axial T1 weighted imaging sequences. Axial diffusion imaging at intermediate and high field performed with ADC mapping. Next, mL Gadavist was given by intravenous infusion, and dynamic axial imaging performed. COMPARISON: There are no prior studies available for comparison. CLINICAL DATA: Most recent PSA: 2.83 ng/mL on 03/23/2025. PSA Density: 0.075 ng/mL squared Prostate Biopsy: Previous biopsy on 10/06/2024 demonstrating atypical small acinar proliferation, suspicious for adenocarcinoma. FINDINGS: Prostate size: 4.8 x 4.3 x 3.5 cm. Calculated prostate volume is 37.6 mL. Hemorrhage: None. Transitional Zone: There is moderate heterogeneous nodular hypertrophy of the transitional zone. Peripheral Zone: There is diffuse mild decreased T2 signal intensity throughout the peripheral zone which can be seen in the setting of prostatitis of scarring. No focal abnormality is seen. There are no foci of restricted diffusion. Seminal Vesicles/Ejaculatory Ducts: Symmetric and normal in signal and caliber. Pelvic Lymph Nodes: No obturator or internal iliac lymph nodes meeting size criteria for adenopathy. Marrow Signal: Normal marrow signal and enhancement without focal lesion identified. MR/MR Prostate wo/w con IMPRESSION: No discrete focus of abnormal signal intensity is identified to suggest clinically significant prostate carcinoma. PI-RADS 2: Low (clinically significant cancer is unlikely to be present) PI-RADS Assessment Categories PI-RADS 1: Very low (clinically significant cancer is highly unlikely to be present) PI-RADS 2: Low (clinically significant cancer is unlikely to be present) PI-RADS 3: Intermediate (the presence of clinically significant cancer is equivocal) PI-RADS 4: High (clinically significant cancer is likely to be present) PI-RADS 5: Very high (clinically significant cancer is highly likely to be present) [employer]. MR Prostate Imaging Reporting and Data System version 2.1. [email or web address]/ Electronically signed by: Devon Pruett MD 04/14/2025 12:11 PM EDT Dictated By: Devon Pruett MD Signed By: <Electronically signed by Devon Pruett MD in OV> 04/14/25 1211 DD/ 0852 TD/TT: 04/14/25 0922 Property Supervisor: Result [facility] External Provider IMG MRI PROCEDURES Final Result * Hepatitis C Antibody with Reflex to HCV, RNA, Quantitative, Real-Time PCR (10/15/2023 9:48 AM EST) Hepatitis C Antibody Nonreactive Nonreactive [facility] Comment:Antibodies to HCV no t detected; does not exclude early acuteHCV infection. Blood Venous blood specimen / Unknown 10/15/2023 9:48 AM EST 10/15/2023 2:48 PM EST Result [facility] Karla Manjarrez MD LAB BLOOD ORDERABLES Final Re sult Performing Organization Address [facility] de Phone Number [facility] [address] [place] [phone] * HIV-1/2 Antigen and Antibodies, Fourth Generation, with Reflexes (10/15/2023 9:48 AM EST) Pathologist [facility] HIV AB/AG Nonreactive Nonreactive [facility] Comment:HIV-1 p24 Ag and/or HIV-1/HIV-2 Ab not detected.A test result that is nonreactive does not exclude thepossibility of exposure to or infection with HIV-1 and/orHIV-2. Nonreactive results in this assay for individualswith prior exposure to HIV-1 and/or HIV-2 may be due toantigen and antibody levels that are below the limit ofdetection of this assay.The [employer] HIV Ag/Ab Combo assay result andsupplemental assay results should be interpreted inconjunction with the patient's clinical presentation,history and other laboratory results. If the results areinconsistent with clinical evidence, additional testing issuggested to confirm the result. Blood Venous blood specimen / Unknown 10/15/2023 9:48 AM EST 10/15/2023 2:48 PM EST Result [facility] Karla Manjarrez MD LAB BLOOD ORDERABLES Final Re sult Performing Organization Address City/[facility] Co de Phone Number [facility] [facility] [address] [place] [address] [phone] * (ABNORMAL) Lipid Panel, Standard (10/15/2023 9:48 AM EST) Triglycerides 90 <150 mg/dL [facility] Comment:Desirable Triglyceri de: less than 150 mg/dLBorderline High Triglyceride 150-199 mg/dLHigh Triglyceride: 200-499 mg/dLVery High Triglyceride: greater than or equal to 5OO mg/dL Cholesterol 191 <200 mg/dL [facility] Comment:Desirable Cholestero l: less than 200 mg/dLBorderline High Cholesterol: 200-239 mg/dLHigh Cholesterol: greater than 239 mg/dL LDL Cholesterol Calculated 114(H) <100 mg/dL [facility] Comment:Desirable LDL: less than 100 mg/dLNear Optimal/Above Optimal LDL: 110- 129 mg/dLBorderline High LDL: 130-159 mg/dLHigh LDL: 160-189 mg/dLVery High LDL: greater than or equal to 190 mg/dL HDL Cholesterol 59 >40 mg/dL [facility] Comment:Desirable HDL: great er than 40 mg/dL Note: This HDL assay may give artificially low results in patients with liver disease. Blood Venous blood specimen / Unknown 10/15/2023 9:48 AM EST 10/15/2023 2:52 PM EST Karla Manjarrez MD LAB BLOOD ORDERABLES Final Re sult [facility] [address] [place] [address] [phone] * Hm Colonoscopy (12/12/2021 7:44 AM EST) us Historical Provider HEALTH MAINTENANCE Final Result from Last 3 Months or Most Recently Relevant to Health Maintenance Insurance [employer] < [address] [place] [id number] Care Teams Utility Operator Yarn Relationship Specialty Start Date End Date Karla Manjarrez MD [address] [place] [id number] PCP - General Family Medicine 09/23/20 Justine Cyr NP Psychiatrist 02/21/24 Kim Jacobo MD [address] [place] [address] [place] [address] Surgeon Urology 08/10/24
--- OUTSIDE RECORDS SUMMARY | 2025-07-11 18:07 | XMS_ITS | Encounter Summary ---
Author Organization [employer] Address [address] [place] [address] Care Team Providers Care Wedding Transportation Driver Name Role Phone Karla Manjarrez MD Primary Care Provider [phone] Reason for Visit * Reason Onset Date Comments Med Refill 02/23/2025 Encounter Details Date Type Department Care Team (Late st Contact Info) Description 02/23/2025 Refill [facility] [address] [place], [place] [phone] Karla Manjarrez MD [address] [place] [address] Hypogonadism in male Social History Tobacco Use Types Packs/Day Years [...] Description 08/24/2025 11:00 AM EST Office Visit [facility] [address] [place] [address] documented as of this encounter Visit Diagnoses Diagnosis Hypogonadism in male documented in this encounter Additional Health Concerns Assessment Noted Time PHQ-9 Depression Total Score: 11 024 1:26 PM EDT documented as of this encounter Care Teams Wedding Transportation Driver Relationship Specialty Start Date End Date Karla Manjarrez MD [address] [place] [address] PCP - General Family Medicine 09/23/20 Justine Cyr NP Psychiatrist 02/21/24 Kim Jacobo MD [address] [place] [address] [place] [address] Surgeon Urology 08/10/24 documented as of this encounter
--- OUTSIDE RECORDS SUMMARY | 2025-07-11 18:07 | XMS_ITS | Encounter Summary ---
Author Organization [employer] Address [address] [place] [address] Care Team Providers Care University Administrator Name Role Phone Karla Manjarrez MD Primary Care Provider [phone] Reason for Visit * Reason Onset Date Comments Med Refill 02/23/2025 Encounter Details Date Type Department Care Team (Late st Contact Info) Description 02/23/2025 Telephone [facility] [address] [place] [address] Karla Manjarrez MD [address] [place] [address] Med Refill Social History Tobacco Use Types [...] encounter Miscellaneous Notes * Telephone Encounter - Amauri Ovidio - 02/23/2025 12:23 PM EDT TC from pt requesting medication refill. Medications needing refill : oxyCODONE-acetaminophen (Percocet) 7.5-325 MG tablet To be sent to: [facility] documented in this encounter Plan of Treatment Upcoming Encounters Date Type Department Care Team (Late st Contact Info) Description 08/24/2025 11:00 AM EST Office Visit [facility] [address] [place] [address] documented as of this encounter Visit Diagnoses Not on filedocumented in this encounter Additional Health Concerns Assessment Noted Time PHQ-9 Depression Total Score: 11 024 1:26 PM EDT documented as of this encounter Care Teams University Administrator Relationship Specialty Start Date End Date Karla Manjarrez MD [address] [place] [address] PCP - General Family Medicine 09/23/20 Justine Cyr NP Psychiatrist 02/21/24 Kim Jacobo MD [address] [place] [address] [place] [address] Surgeon Urology 08/10/24 documented as of this encounter
[2025-07-11 20:38] VITALS: BP 116/76; PULSE 69; RESP 16; TEMP 36.6; O2SAT 98
[2025-07-11 20:50] VITALS: BP 116/76; PULSE 69; RESP 16; TEMP 36.6; O2SAT 98
== END 2025-07-11 20:50 | disposition home or self-care (01) ==
PROVIDERS: Emergency Provider Emergency Medicine Emergency Medical Services; PCP Family Medicine
DX: M77.30 Calcaneal spur, unspecified foot (principal); M19.072 Primary osteoarthritis, left ankle and foot; M19.071 Primary osteoarthritis, right ankle and foot; M79.604 Pain in right leg; M79.605 Pain in left leg; M25.572 Pain in left ankle and joints of left foot; M25.571 Pain in right ankle and joints of right foot; Z79.899 Other long term (current) drug therapy; Z87.891 Personal history of nicotine dependence
CPT/HCPCS: 73610; 73630; 96372; 99284; J1885

== ENCOUNTER → 2025-07-11 17:32 | Outpatient (BNV) | payer OTHER, SELFPAY | PROVIDERS: PCP Family Medicine; Visit Provider Specialist | DX: M25.571 Pain in right ankle and joints of right foot (principal); M25.572 Pain in left ankle and joints of left foot | CPT/HCPCS: 73610; 73630 ==